=== PATIENT | female | born 1975 | race Hispanic/Latino ===

== ENCOUNTER 2018-12-02 05:38 | Emergency (ER) | payer MEDICAID, SELFPAY ==
--- NOTE | 2018-12-02 05:40 | ED.BACK ---
HPI - Back Pain/Injury <Abilio Jorge, - Last Filed: 12/03/18 02:55> General Chief Complaint: Extremity Problem,Nontraumatic Stated Complaint: states pain from sciatica in left leg hard to walk Time Seen by Provider: 12/02/18 05:40 Source: patient Mode of arrival: ambulatory Limitations: no limitations History of Present Illness HPI Narrative: 42-year-old female nonsmoker with no significant known medical history presents with severe left leg pain and swelling in the absence of injury. She states her pain started a few days ago and now is rapidly worsening. She admits to significant swelling from the groin to her foot and color change. She states she was seen by her primary care provider very recently due to heavy vaginal bleeding and she was scheduled for an ultrasound and there is some concern that she may have uterine cancer. She denies any history of clots, recent travel surgeries or other risk factors for clot. She denies any chest pain or shortness of breath. She takes no blood thinners. She denies dysuria, frequency or urgency MD Complaint: other Onset (ago): day(s) Duration: progressively worsening Similar Symptoms Previously: No Location: left lower back Severity: severe Quality: burning and aching Radiation: left leg Severity scale (1-10): 10 Relieving factors: none Related Data Home Medications Medication Instructions Recorded Confirmed acetaminophen PRN #0 10/02/09 Allergies Allergy/AdvReac Type Severity Reaction Status Date / Time No Known Drug Allergies Allergy Verified 12/02/18 07:08 <Cathleen Samuel DO - Last Filed: 12/02/18 08:53> General Source: patient History of Present Illness HPI Narrative: This is a 42-year-old female comes emergency department with complaint of left lower extremity pain and swelling and inability to walk. Patient was signed out to myself by Dr. Jorge the physician on overnight. Patient was re-evaluated, states that she started having symptoms on Friday which have been slowly progressing. She saw primary care who told her she had sciatica and give her Motrin. Patient states that the swelling has continued to increase. And pain started in her lateral and moved up towards the buttock. Patient was quite uncomfortable per report when she arrived was not able to walk. She has been taking Motrin for pain without any improvement. She denies any fevers or chills. She denies any current chest pain or shortness of breath. She states she felt a little short of breath earlier in the week. She denies any nausea or vomiting. Denies any constipation or diarrhea. Denies any urinary issues. States that she was seen at the [facility] for concern for uterine cancer and had a biopsy but she has not received the report. She was supposed to follow up in the next week to get the results. Patient states that she has had some vaginal bleeding that she has regular periods but has had having bleeding with those at times and occasional spotting. She denies any current vaginal bleeding at this time. She has on metformin for diabetes. States that she does not take any additional medications regularly. <Cathleen Samuel DO - Last Filed: 12/02/18 08:53> Review of Systems ROS Unobtainable: All systems reviewed & are unremarkable except as noted in HPI and below Constitutional Denies chills and Denies fever(s) Cardiovascular Denies chest pain, Denies syncope, Reports edema (left leg), Denies dyspnea and Denies dyspnea on exertion Respiratory Denies chest congestion, Denies cough, Denies hemoptysis, Denies dyspnea and Denies dyspnea on exertion Gastrointestinal Gastrointestinal: Denies abdominal pain, Denies change in bowel habits, Denies diarrhea, Denies nausea and Denies vomiting Genitourinary Reports abnormal vaginal bleeding (per patient regular periods with spotting at times.), Denies hematuria, Denies flank pain, Denies urinary incontinence and Denies urinary urgency Musculoskeletal Reports as per HPI, Reports abnormal gait (unable to walk), Reports limited range of motion, Denies muscle weakness and Denies numbness Integumentary/Breasts Denies unusual bruising and Denies wounds Neurologic Reports abnormal gait (unable to walk), Denies syncope and Denies numbness PFS <Abilio Jorge DO - Last Filed: 12/03/18 02:55> Medical History (Updated 12/02/18 @ 08:26 by Cathleen Samuel DO) Diabetes (Chronic) Social History Smoking Status: Never smoker Social History Smoking Status: Never smoker Exam <Abilio Jorge DO - Last Filed: 12/03/18 02:55> Initial Vital Signs Initial Vital Signs: Vital Signs Temperature 98 F 12/02/18 05:51 Pulse Rate 88 12/02/18 05:51 Respiratory Rate 18 12/02/18 05:51 Blood Pressure 122/74 12/02/18 05:51 Pulse Oximetry 100 12/02/18 05:51 <Cathleen Samuel DO - Last Filed: 12/02/18 08:53> Narrative Exam Narrative: GENERAL: Alert and oriented x three, well-nourished female in mild distress HEENT: Head normocephalic, atraumatic, EOMI, pupils reactive, face symmetric, moist mucous membranes NECK: Supple, full range of motion CARDIOVASCULAR: Regular rate and rhythm without murmurs, rubs or gallops. RESPIRATORY: Breath sounds equal bilaterally, no wheezes rales or rhonchi. ABDOMEN: Soft, nontender. Normoactive bowel sounds all 4 quadrants. No guarding or rebound, rigidity, no mass EXTREMITIES: Patient has swelling greater on the left in comparison to the right. Skin coloration is slightly darker compared to the right. Patient has palpable pulse but difficult to palpate on the left in comparison to the right. Patient has sensation to light touch. Patient does not wish to move her lower extremity secondary to pain. NEUROLOGICAL: Cranial nerves II through XII grossly intact. Moving all extremities SKIN: Warm, dry, no petechiae. Initial Vital Signs Initial Vital Signs: Vital Signs Temperature 98 F 12/02/18 05:51 Pulse Rate 88 12/02/18 05:51 Respiratory Rate 18 12/02/18 05:51 Blood Pressure 122/74 12/02/18 05:51 Pulse Oximetry 100 12/02/18 05:51 Course <Abilio Jorge DO - Last Filed: 12/03/18 02:55> Orders Ordered: Discontinued Medications Heparin Sodium (Porcine) (Heparin) 5,000 unit IV NOW ONE Stop: 12/02/18 05:50 Last Admin: 12/02/18 06:07 Dose: 5,000 unit Hydromorphone HCl (Dilaudid) 0.5 mg IV NOW ONE Stop: 12/02/18 05:50 Last Admin: 12/02/18 06:06 Dose: 0.5 mg Heparin Sodium/Dextrose (Heparin Drip) 25,000 unit in 500 mls @ 27.433 mls/hr IV CONT AUNDREA; Protocol Last Titration: 12/02/18 09:10 Dose: 0 units/kg/hr, 0 mls/hr Admin: 12/02/18 07:11 Dose: 18 units/kg/hr, 27.433 mls/hr Ondansetron HCl (Zofran) 4 mg IV NOW ONE Stop: 12/02/18 06:05 Last Admin: 12/02/18 06:06 Dose: 4 mg Vital Signs - 8 hr 12/02/18 05:51 12/02/18 06:00 12/02/18 07:00 Temperature 98 F Pulse Rate 88 87 85 Respiratory Rate 18 18 16 Blood Pressure 122/74 Blood Pressure [Left Arm] 107/64 106/60 Pulse Oximetry 100 99 99 12/02/18 08:08 12/02/18 08:30 Temperature Pulse Rate 83 88 Respiratory Rate 18 16 Blood Pressure Blood Pressure [Left Arm] 103/76 99/63 Pulse Oximetry 100 <Cathleen Samuel, - Last Filed: 12/02/18 08:53> Orders Ordered: Discontinued Medications Heparin Sodium (Porcine) (Heparin) 5,000 unit IV NOW ONE Stop: 12/02/18 05:50 Last Admin: 12/02/18 06:07 Dose: 5,000 unit Hydromorphone HCl (Dilaudid) 0.5 mg IV NOW ONE Stop: 12/02/18 05:50 Last Admin: 12/02/18 06:06 Dose: 0.5 mg Heparin Sodium/Dextrose (Heparin Drip) 25,000 unit in 500 mls @ 27.433 mls/hr IV CONT AUNDREA; Protocol Last Titration: 12/02/18 09:10 Dose: 0 units/kg/hr, 0 mls/hr Admin: 12/02/18 07:11 Dose: 18 units/kg/hr, 27.433 mls/hr Ondansetron HCl (Zofran) 4 mg IV NOW ONE Stop: 12/02/18 06:05 Last Admin: 12/02/18 06:06 Dose: 4 mg Vital Signs - 8 hr 12/02/18 05:51 12/02/18 06:00 12/02/18 07:00 Temperature 98 F Pulse Rate 88 87 85 Respiratory Rate 18 18 16 Blood Pressure 122/74 Blood Pressure [Left Arm] 107/64 106/60 Pulse Oximetry 100 99 99 12/02/18 08:08 12/02/18 08:30 Temperature Pulse Rate 83 88 Respiratory Rate 18 16 Blood Pressure Blood Pressure [Left Arm] 103/76 99/63 Pulse Oximetry 100 MDM - Back Pain/Injury <Abilio JorgeDO - Last Filed: 12/03/18 02:55> Lab Data Result diagrams: 12/02/18 06:00 12/02/18 06:00 Lab Results 12/02/18 12/02/18 12/02/18 Range/Units 06:00 06:00 06:00 WBC 10.7 (4.5-11.0) X10^3/uL RBC 4.15 (4.0-5.2) X10^6/uL Hgb 8.4 L (12.0-16.0) g/dL Hct 27.2 L (36-46) % MCV 65.6 L (80-100) fL MCH 20.2 L (26-34) PG MCHC 30.8 (30-36) % RDW 18.3 H (11.6-14.8) % Plt Count 373 (150-400) X10^3/uL Neut % (Auto) 62.0 (50-75) % Lymph % (Auto) 22.9 L (25-40) % [place] % (Auto) 11.7 (3-14) % Eos % (Auto) 2.5 (2-4) % Baso % (Auto) 0.9 (0-2) % Neut # (Auto) 6700 (8349-7455) /uL Lymph # (Auto) 2500 (7225-0613) /uL [place] # (Auto) 1200 H (0-900) /uL Eos # (Auto) 300 (0-450) /uL Baso # (Auto) 100 (0-100) /uL RBC Morphology See below Polychromasia 1+ H Hypochromasia 1+ H Anisocytosis 1+ H Microcytosis 1+ H Ovalocytes 1+ H PT 10.9 (10.1-12.7) SECONDS INR 1.0 (0.9-1.3) APTT (26.4-36.2) SECONDS Sodium 136 L (137-145) mmol/L Potassium 4.7 (3.4-5.1) mmol/L Chloride 104 (98-107) mmol/L Carbon Dioxide 25 (22-32) mmol/L BUN 15 (7-17) mg/dL Creatinine 0.60 (0.52-1.04) mg/dL Estimated GFR > 60.0 (>60) mL/min BUN/Creatinine Ratio 25.0 H (6-22) Glucose 185 H (70-100) mg/dL Lactate (0.7-2.1) mmol/L Calcium 8.7 (8.4-10.2) mg/dL 12/02/18 12/02/18 12/02/18 Range/Units 06:00 06:00 08:24 WBC (4.5-11.0) X10^3/uL RBC (4.0-5.2) X10^6/uL Hgb (12.0-16.0) g/dL Hct (36-46) % MCV (80-100) fL MCH (26-34) PG MCHC (30-36) % RDW (11.6-14.8) % Plt Count (150-400) X10^3/uL Neut % (Auto) (50-75) % Lymph % (Auto) (25-40) % [place] % (Auto) (3-14) % Eos % (Auto) (2-4) % Baso % (Auto) (0-2) % Neut # (Auto) (1261-5353) /uL Lymph # (Auto) (5427-3470) /uL [place] # (Auto) (0-900) /uL Eos # (Auto) (0-450) /uL Baso # (Auto) (0-100) /uL RBC Morphology Polychromasia Hypochromasia Anisocytosis Microcytosis Ovalocytes PT (10.1-12.7) SECONDS INR (0.9-1.3) APTT 26 L 86 H* D (26.4-36.2) SECONDS Sodium (137-145) mmol/L Potassium (3.4-5.1) mmol/L Chloride (98-107) mmol/L Carbon Dioxide (22-32) mmol/L BUN (7-17) mg/dL Creatinine (0.52-1.04) mg/dL Estimated GFR (>60) mL/min BUN/Creatinine Ratio (6-22) Glucose (70-100) mg/dL Lactate 1.4 (0.7-2.1) mmol/L Calcium (8.4-10.2) mg/dL <Cathleen Samuel, DO - Last Filed: 12/02/18 08:53> Lab Data Attestation: I reviewed the patient's lab results. Lab Results 12/02/18 12/02/18 12/02/18 Range/Units 06:00 06:00 06:00 WBC 10.7 (4.5-11.0) X10^3/uL RBC 4.15 (4.0-5.2) X10^6/uL Hgb 8.4 L (12.0-16.0) g/dL Hct 27.2 L (36-46) % MCV 65.6 L (80-100) fL MCH 20.2 L (26-34) PG MCHC 30.8 (30-36) % RDW 18.3 H (11.6-14.8) % Plt Count 373 (150-400) X10^3/uL Neut % (Auto) 62.0 (50-75) % Lymph % (Auto) 22.9 L (25-40) % [place] % (Auto) 11.7 (3-14) % Eos % (Auto) 2.5 (2-4) % Baso % (Auto) 0.9 (0-2) % Neut # (Auto) 6700 (7065-9817) /uL Lymph # (Auto) 2500 (9700-6881) /uL [place] # (Auto) 1200 H (0-900) /uL Eos # (Auto) 300 (0-450) /uL Baso # (Auto) 100 (0-100) /uL RBC Morphology See below Polychromasia 1+ H Hypochromasia 1+ H Anisocytosis 1+ H Microcytosis 1+ H Ovalocytes 1+ H PT 10.9 (10.1-12.7) SECONDS INR 1.0 (0.9-1.3) APTT (26.4-36.2) SECONDS Sodium 136 L (137-145) mmol/L Potassium 4.7 (3.4-5.1) mmol/L Chloride 104 (98-107) mmol/L Carbon Dioxide 25 (22-32) mmol/L BUN 15 (7-17) mg/dL Creatinine 0.60 (0.52-1.04) mg/dL Estimated GFR > 60.0 (>60) mL/min BUN/Creatinine Ratio 25.0 H (6-22) Glucose 185 H (70-100) mg/dL Lactate (0.7-2.1) mmol/L Calcium 8.7 (8.4-10.2) mg/dL 12/02/18 12/02/18 12/02/18 Range/Units 06:00 06:00 08:24 WBC (4.5-11.0) X10^3/uL RBC (4.0-5.2) X10^6/uL Hgb (12.0-16.0) g/dL Hct (36-46) % MCV (80-100) fL MCH (26-34) PG MCHC (30-36) % RDW (11.6-14.8) % Plt Count (150-400) X10^3/uL Neut % (Auto) (50-75) % Lymph % (Auto) (25-40) % [place] % (Auto) (3-14) % Eos % (Auto) (2-4) % Baso % (Auto) (0-2) % Neut # (Auto) (0292-1946) /uL Lymph # (Auto) (7563-6255) /uL [place] # (Auto) (0-900) /uL Eos # (Auto) (0-450) /uL Baso # (Auto) (0-100) /uL RBC Morphology Polychromasia Hypochromasia Anisocytosis Microcytosis Ovalocytes PT (10.1-12.7) SECONDS INR (0.9-1.3) APTT 26 L 86 H* D (26.4-36.2) SECONDS Sodium (137-145) mmol/L Potassium (3.4-5.1) mmol/L Chloride (98-107) mmol/L Carbon Dioxide (22-32) mmol/L BUN (7-17) mg/dL Creatinine (0.52-1.04) mg/dL Estimated GFR (>60) mL/min BUN/Creatinine Ratio (6-22) Glucose (70-100) mg/dL Lactate 1.4 (0.7-2.1) mmol/L Calcium (8.4-10.2) mg/dL Imaging Data vascular US: Radiologist's impression: Prelim report. Noncompressible occlusive thrombus within the greater saphenous vein. The common femoral, superficial femoral and popliteal veins are noncompressible however demonstrate flow. Review of the CT demonstrates inflammation surrounding the vessel and there is likely a component of thrombophlebitis. Aorta w/ runoff CTA: Radiologist's impression: prelim report. Arteries are symmetric and well perfused, no aneurysm dissection or thrombosis. Symmetric normal perfusion to both feet. Subcutaneous edema of the left leg from mid femur to lower leg. No abscess, small knee effusion. Thrombus within the left popliteal vein extending superiorly to the left common iliac vein. IVC is patent. Patient has a 1.7 x 2.6 cm hypodense left adrenal lesion is indeterminate. Hypodense uterine fibroids. Otherwise no abnormalities to the abdominal organs no free air or fluid, bones are intact with out acute or suspicious pathology. MDM Narrative Medical decision making narrative: Patient was signed out to myself by Dr. Jorge. Patient is a 42-year-old who came in with complaint of left lower extremity pain that is been worsening and started on Friday. Patient has swelling of her lower extremity significantly compared to the right. The coloration is slightly different than the right and although she has a palpable pulse on the left is a little bit harder to palpate than the right. Patient was not able to ambulate into the department secondary to pain. Patient has no diabetes, she states she has been following with primary care at the [facility] in [place]. She states that they did a biopsy recently because they were concerned for cancer in her uterus although she has not received the results. She speaks slovenian but her first language is polish, I did offer networking administrator or to contact family/friends to come sit with her and she defers both of these. Today she has a large DVT running from the greater saphenous up into the common iliac. There is indeterminate hypodense left adrenal lesion and fibroid uterus. Discussed with patient no obvious exacerbating factors such as recent travel, estrogen, no hx of dvt. Attempted to speak with vascular surgery but they asked that we consult to Medicine. I do think patient is potentially a candidate for intervention with a history complicated by vaginal bleeding, I spoke with Dr. Ng the hospitalist who accepts for transfer. We discussed patient is currently on heparin, will repeat a PTT within an hour prior to transfer. If transfer is going to take more than 4 hours discussed putting patient on low molecular weight heparin instead. Patient is aware of the plan for evaluation and then decision about how to proceed with treatment, she is comfortable with the plan. PTT is still pending at time of transfer. Discharge Plan Departure Patient Disposition: [facility] Clinical Impression: DVT of leg (deep venous thrombosis) Discharge Date/Time: 12/02/18 08:55 Interventions: ED Discharge Assessment Last Done: 12/02/18 08:52 Prescriptions: No Action acetaminophen 325 MG tablet PRN Qty: 0 RF: 0
--- NOTE | 2018-12-02 05:49 | DI.CT.S_ITS ---
PROCEDURE: 1. CT ANGIO ABD AORTA RUNOFF 2. CT venography of the abdomen, pelvis, and bilateral lower extremities. INDICATIONS: severe left leg pain, swelling, groin to foot TECHNIQUE: After the administration of intravenous contrast, 2.5 mm sections acquired from T12 to the feet, with optional delayed image acquisition from the knees to the feet. 3-dimensional maximum intensity projection (MIP) coronal and sagittal reformats, and/or 3-dimensional volume rendering reformatting was then performed. For radiation dose reduction, the following was used: automated exposure control. COMPARISON: [facility], , [facility] VENOUS LOW EXTREM LT, 12/02/2018, 6:36. FINDINGS: Image quality: Partially degraded by motion artifact. Extravascular tissues: Lung bases are clear. Heart size is normal. Liver is normal in size and enhancement. Gallbladder is within normal limits. Biliary system is non dilated. Pancreas enhances normally. Spleen is normal in size and enhancement. No right adrenal nodules. 26 mm diameter left adrenal nodule is present with post contrast Hounsfield units of 66. Kidneys are normal in size and enhancement, without hydronephrosis. Non opacified bowel loops demonstrate normal wall thickness and enhancement. Normal appendix. No free fluid or air. No retroperitoneal or mesenteric adenopathy. No ventral hernias. Bladder wall thickness is normal. Multiple uterine fibroids are present the, largest of which measure 16 mm posteriorly, and 55 mm anteriorly. No inguinal hernias or adenopathy. No suspicious bony lesions. No vertebral body compression fractures. Abdominal aorta: Widely patent. No aneurysm, dissection, nor stenosis. Right lower extremity: Common, internal, and external iliac arteries are patent. Common, profunda, and superficial femoral arteries are patent. Above and below-knee popliteal artery patent. Anterior tibial artery, tibioperoneal trunk, peroneal and posterior tibial arteries patent. Left lower extremity: Common, internal, and external iliac arteries are patent. Common, profunda, and superficial femoral arteries are patent. Above and below-knee popliteal artery patent. Anterior tibial artery, tibioperoneal trunk, peroneal and posterior tibial arteries patent. CT venography of the abdomen, pelvis, and bilateral lower extremities: The inferior vena cava is patent. Renal veins are patent. The right common, internal, and external iliac veins are patent. The right superficial femoral, and popliteal veins are patent. The left common, internal, and external iliac veins demonstrate occlusive thrombus. The left superficial femoral and greater saphenous veins demonstrate occlusive thrombus. The above and below-knee popliteal vein demonstrates occlusive thrombus. There is probable occlusive thrombus extending into the tibial veins. IMPRESSION: 1. Negative examination of the arterial structures of the abdomen, pelvis, and lower extremities. 2. Left lower extremity DVT. 3. Indeterminate left adrenal lesion. This could be further assessed with adrenal protocol MRI, if clinically indicated. 4. Multiple uterine fibroids. If the patient demonstrates symptoms referable to uterine fibroids, she may be a candidate for uterine fibroid embolization. Interventional radiology consultation at [facility] could be obtained with Dr. Pryor. 5. Concordant with preliminary interpretation. Dictated by: Benjie Pryor M.D. on 12/02/2018 at 8:34 Approved by: Benjie Pryor M.D. on 12/02/2018 at 9:19
[2018-12-02 05:51] VITALS: BP 122/74; PULSE 88; RESP 18; TEMP 36.6; O2SAT 100; BMI 29.7
[2018-12-02 06:00] VITALS: BP 107/64; PULSE 87; RESP 18; O2SAT 99
[2018-12-02] MEDS: ONDANSETRON 4 MG/2 ML INJ IV (06:06)
[2018-12-02] MEDS: HYDROMORPHONE 0.5 MG INJ IV (06:06)
[2018-12-02] MEDS: HEPARIN 5,000 UNIT/ML VIAL 5000 UNIT IV (06:07)
[2018-12-02 06:09] LABS: Basophils Absolute Auto 100 /uL (0-100); Basophils Percent Auto 0.9 % (0-2); Eosinophils Absolute Auto 300 /uL (0-450); Eosinophils Percent Auto 2.5 % (2-4); Hematocrit 27.2 % (36-46); Hemoglobin 8.4 g/dL (12.0-16.0); Lymphocytes Absolute Auto 2500 /uL (1100-4500); Lymphocytes Percent Auto 22.9 % (25-40); Mean Corpuscular HGB Conc 30.8 % (30-36); Mean Corpuscular Hemoglobin 20.2 PG (26-34); Mean Corpuscular Volume 65.6 fL (80-100); Monocytes Absolute Auto 1200 /uL (0-900); Monocytes Percent Auto 11.7 % (3-14); Neutrophils Absolute Auto 6700 /uL (1500-7000); Platelet Count 373 X10^3/uL (150-400); Red Blood Cell Count 4.15 X10^6/uL (4.0-5.2); Red Cell Distribution Width 18.3 % (11.6-14.8); White Blood Cell Count 10.7 X10^3/uL (4.5-11.0)
--- NOTE | 2018-12-02 06:09 | ED_ITS ---
HPI - Back Pain/Injury <Abilio Jorge, - Last Filed: 12/03/18 02:55> General Chief Complaint: Extremity Problem,Nontraumatic Stated Complaint: states pain from sciatica in left leg hard to walk Time Seen by Provider: 12/02/18 05:40 Source: patient Mode of arrival: ambulatory Limitations: no limitations History of Present Illness HPI Narrative: 42-year-old female nonsmoker with no significant known medical history presents with severe left leg pain and swelling in the absence of injury . She states her pain started a few days ago and now is rapidly worsening. She admits to significant swelling from the groin to her foot and color change. She states she was seen by her primary care provider very recently due to heavy vaginal bleeding and she was scheduled for an ultrasound and there is some concern that she may have uterine cancer. She denies any history of clots, recent travel surgeries or other risk factors for clot. She denies any chest pain or shortness of breath. She takes no blood thinners. She denies dysuria, frequency or urgency MD Complaint: other Onset (ago): day(s) Duration: progressively worsening Similar Symptoms Previously: No Location: left lower back Severity: severe Quality: burning and aching Radiation: left leg Severity scale (1-10): 10 Relieving factors: none Related Data Home Medications Medication Instructions Recorded Confirmed acetaminophen PRN #0 10/02/09 Allergies Allergy/AdvReac Type Severity Reaction Status Date / Time No Known Drug Allergies Allergy Verified 12/02/18 07:08 <Cathleen Samuel DO - Last Filed: 12/02/18 08:53> General Source: patient History of Present Illness HPI Narrative: This is a 42-year-old female comes emergency department with complaint of left lower extremity pain and swelling and inability to walk. Patient was signed out to myself by Dr. Jorge the physician on overnight. Patient was re-evaluated, states that she started having symptoms on Friday which have been slowly progressing. She saw primary care who told her she had sciatica and give her Motrin. Patient states that the swelling has continued to increase. And pain started in her lateral and moved up towards the buttock. Patient was quite uncomfortable per report when she arrived was not able to walk. She has been taking Motrin for pain without any improvement. She denies any fevers or chills. She denies any current chest pain or shortness of breath. She states she felt a little short of breath earlier in the week. She denies any nausea or vomiting. Denies any constipation or diarrhea. Denies any urinary issues. States that she was seen at the [facility] for concern for uterine cancer and had a biopsy but she has not received the report. She was supposed to follow up in the next week to get the results. Patient states that she has had some vaginal bleeding that she has regular periods but has had having bleeding with those at times and occasional spotting. She denies any current vaginal bleeding at this time. She has on metformin for diabetes. States that she does not take any additional medications regularly. <Cathleen Samuel DO - Last Filed: 12/02/18 08:53> Review of Systems ROS Unobtainable: All systems reviewed & are unremarkable except as noted in HPI and below Constitutional Denies chills and Denies fever(s) Cardiovascular Denies chest pain, Denies syncope, Reports edema (left leg), Denies dyspnea and Denies dyspnea on exertion Respiratory Denies chest congestion, Denies cough, Denies hemoptysis, Denies dyspnea and Denies dyspnea on exertion Gastrointestinal Gastrointestinal: Denies abdominal pain, Denies change in bowel habits, Denies diarrhea, Denies nausea and Denies vomiting Genitourinary Reports abnormal vaginal bleeding (per patient regular periods with spotting at times.), Denies hematuria, Denies flank pain, Denies urinary incontinence and Denies urinary urgency Musculoskeletal Reports as per HPI, Reports abnormal gait (unable to walk), Reports limited range of motion, Denies muscle weakness and Denies numbness Integumentary/Breasts Denies unusual bruising and Denies wounds Neurologic Reports abnormal gait (unable to walk), Denies syncope and Denies numbness PFS <Abilio Jorge DO - Last Filed: 12/03/18 02:55> Medical History (Updated 12/02/18 @ 08:26 by Cathleen Samuel DO) Diabetes (Chronic) Social History Smoking Status: Never smoker Social History Smoking Status: Never smoker Exam <Abilio Jorge DO - Last Filed: 12/03/18 02:55> Initial Vital Signs Initial Vital Signs: Vital Signs Temperature 98 F 12/02/18 05:51 Pulse Rate 88 12/02/18 05:51 Respiratory Rate 18 12/02/18 05:51 Blood Pressure 122/74 12/02/18 05:51 Pulse Oximetry 100 12/02/18 05:51 <Cathleen Samuel DO - Last Filed: 12/02/18 08:53> Narrative Exam Narrative: GENERAL: Alert and oriented x three, well-nourished female in mild distress HEENT: Head normocephalic, atraumatic, EOMI, pupils reactive, face symmetric, moist mucous membranes NECK: Supple, full range of motion CARDIOVASCULAR: Regular rate and rhythm without murmurs, rubs or gallops. RESPIRATORY: Breath sounds equal bilaterally, no wheezes rales or rhonchi. ABDOMEN: Soft, nontender. Normoactive bowel sounds all 4 quadrants. No guarding or rebound, rigidity, no mass EXTREMITIES: Patient has swelling greater on the left in comparison to the right. Skin coloration is slightly darker compared to the right. Patient has palpable pulse but difficult to palpate on the left in comparison to the right. Patient has sensation to light touch. Patient does not wish to move her lower extremity secondary to pain. NEUROLOGICAL: Cranial nerves II through XII grossly intact. Moving all extremities SKIN: Warm, dry, no petechiae. Initial Vital Signs Initial Vital Signs: Vital Signs Temperature 98 F 12/02/18 05:51 Pulse Rate 88 12/02/18 05:51 Respiratory Rate 18 12/02/18 05:51 Blood Pressure 122/74 12/02/18 05:51 Pulse Oximetry 100 12/02/18 05:51 Course <Abilio Jorge DO - Last Filed: 12/03/18 02:55> Orders Ordered: Discontinued Medications Heparin Sodium (Porcine) (Heparin) 5,000 unit IV NOW ONE Stop: 12/02/18 05:50 Last Admin: 12/02/18 06:07 Dose: 5,000 unit Hydromorphone HCl (Dilaudid) 0.5 mg IV NOW ONE Stop: 12/02/18 05:50 Last Admin: 12/02/18 06:06 Dose: 0.5 mg Heparin Sodium/Dextrose (Heparin Drip) 25,000 unit in 500 mls @ 27.433 mls/hr IV CONT AUNDREA; Protocol Last Titration: 12/02/18 09:10 Dose: 0 units/kg/hr, 0 mls/hr Admin: 12/02/18 07:11 Dose: 18 units/kg/hr, 27.433 mls/hr Ondansetron HCl (Zofran) 4 mg IV NOW ONE Stop: 12/02/18 06:05 Last Admin: 12/02/18 06:06 Dose: 4 mg Vital Signs - 8 hr 12/02/18 05:51 12/02/18 06:00 12/02/18 07:00 Temperature 98 F Pulse Rate 88 87 85 Respiratory Rate 18 18 16 Blood Pressure 122/74 Blood Pressure [Left Arm] 107/64 106/60 Pulse Oximetry 100 99 99 12/02/18 08:08 12/02/18 08:30 Temperature Pulse Rate 83 88 Respiratory Rate 18 16 Blood Pressure Blood Pressure [Left Arm] 103/76 99/63 Pulse Oximetry 100 <Cathleen Samuel, - Last Filed: 12/02/18 08:53> Orders Ordered: Discontinued Medications Heparin Sodium (Porcine) (Heparin) 5,000 unit IV NOW ONE Stop: 12/02/18 05:50 Last Admin: 12/02/18 06:07 Dose: 5,000 unit Hydromorphone HCl (Dilaudid) 0.5 mg IV NOW ONE Stop: 12/02/18 05:50 Last Admin: 12/02/18 06:06 Dose: 0.5 mg Heparin Sodium/Dextrose (Heparin Drip) 25,000 unit in 500 mls @ 27.433 mls/hr IV CONT AUNDREA; Protocol Last Titration: 12/02/18 09:10 Dose: 0 units/kg/hr, 0 mls/hr Admin: 12/02/18 07:11 Dose: 18 units/kg/hr, 27.433 mls/hr Ondansetron HCl (Zofran) 4 mg IV NOW ONE Stop: 12/02/18 06:05 Last Admin: 12/02/18 06:06 Dose: 4 mg Vital Signs - 8 hr 12/02/18 05:51 12/02/18 06:00 12/02/18 07:00 Temperature 98 F Pulse Rate 88 87 85 Respiratory Rate 18 18 16 Blood Pressure 122/74 Blood Pressure [Left Arm] 107/64 106/60 Pulse Oximetry 100 99 99 12/02/18 08:08 12/02/18 08:30 Temperature Pulse Rate 83 88 Respiratory Rate 18 16 Blood Pressure Blood Pressure [Left Arm] 103/76 99/63 Pulse Oximetry 100 MDM - Back Pain/Injury <Abilio JorgeDO - Last Filed: 12/03/18 02:55> Lab Data Result diagrams: 12/02/18 06:00 12/02/18 06:00 Lab Results 12/02/18 12/02/18 12/02/18 Range/Units 06:00 06:00 06:00 WBC 10.7 (4.5-11.0) X10^3/uL RBC 4.15 (4.0-5.2) X10^6/uL Hgb 8.4 L (12.0-16.0) g/dL Hct 27.2 L (36-46) % MCV 65.6 L (80-100) fL MCH 20.2 L (26-34) PG MCHC 30.8 (30-36) % RDW 18.3 H (11.6-14.8) % Plt Count 373 (150-400) X10^3/uL Neut % (Auto) 62.0 (50-75) % Lymph % (Auto) 22.9 L (25-40) % [place] % (Auto) 11.7 (3-14) % Eos % (Auto) 2.5 (2-4) % Baso % (Auto) 0.9 (0-2) % Neut # (Auto) 6700 (4985-1454) /uL Lymph # (Auto) 2500 (0803-0509) /uL [place] # (Auto) 1200 H (0-900) /uL Eos # (Auto) 300 (0-450) /uL Baso # (Auto) 100 (0-100) /uL RBC Morphology See below Polychromasia 1+ H Hypochromasia 1+ H Anisocytosis 1+ H Microcytosis 1+ H Ovalocytes 1+ H PT 10.9 (10.1-12.7) SECONDS INR 1.0 (0.9-1.3) APTT (26.4-36.2) SECONDS Sodium 136 L (137-145) mmol/L Potassium 4.7 (3.4-5.1) mmol/L Chloride 104 (98-107) mmol/L Carbon Dioxide 25 (22-32) mmol/L BUN 15 (7-17) mg/dL Creatinine 0.60 (0.52-1.04) mg/dL Estimated GFR > 60.0 (>60) mL/min BUN/Creatinine Ratio 25.0 H (6-22) Glucose 185 H (70-100) mg/dL Lactate (0.7-2.1) mmol/L Calcium 8.7 (8.4-10.2) mg/dL 12/02/18 12/02/18 12/02/18 Range/Units 06:00 06:00 08:24 WBC (4.5-11.0) X10^3/uL RBC (4.0-5.2) X10^6/uL Hgb (12.0-16.0) g/dL Hct (36-46) % MCV (80-100) fL MCH (26-34) PG MCHC (30-36) % RDW (11.6-14.8) % Plt Count (150-400) X10^3/uL Neut % (Auto) (50-75) % Lymph % (Auto) (25-40) % [place] % (Auto) (3-14) % Eos % (Auto) (2-4) % Baso % (Auto) (0-2) % Neut # (Auto) (1141-2573) /uL Lymph # (Auto) (7716-7350) /uL [place] # (Auto) (0-900) /uL Eos # (Auto) (0-450) /uL Baso # (Auto) (0-100) /uL RBC Morphology Polychromasia Hypochromasia Anisocytosis Microcytosis Ovalocytes PT (10.1-12.7) SECONDS INR (0.9-1.3) APTT 26 L 86 H* D (26.4-36.2) SECONDS Sodium (137-145) mmol/L Potassium (3.4-5.1) mmol/L Chloride (98-107) mmol/L Carbon Dioxide (22-32) mmol/L BUN (7-17) mg/dL Creatinine (0.52-1.04) mg/dL Estimated GFR (>60) mL/min BUN/Creatinine Ratio (6-22) Glucose (70-100) mg/dL Lactate 1.4 (0.7-2.1) mmol/L Calcium (8.4-10.2) mg/dL <Cathleen Samuel, DO - Last Filed: 12/02/18 08:53> Lab Data Attestation: I reviewed the patient's lab results. Lab Results 12/02/18 12/02/18 12/02/18 Range/Units 06:00 06:00 06:00 WBC 10.7 (4.5-11.0) X10^3/uL RBC 4.15 (4.0-5.2) X10^6/uL Hgb 8.4 L (12.0-16.0) g/dL Hct 27.2 L (36-46) % MCV 65.6 L (80-100) fL MCH 20.2 L (26-34) PG MCHC 30.8 (30-36) % RDW 18.3 H (11.6-14.8) % Plt Count 373 (150-400) X10^3/uL Neut % (Auto) 62.0 (50-75) % Lymph % (Auto) 22.9 L (25-40) % [place] % (Auto) 11.7 (3-14) % Eos % (Auto) 2.5 (2-4) % Baso % (Auto) 0.9 (0-2) % Neut # (Auto) 6700 (2680-9193) /uL Lymph # (Auto) 2500 (5505-5170) /uL [place] # (Auto) 1200 H (0-900) /uL Eos # (Auto) 300 (0-450) /uL Baso # (Auto) 100 (0-100) /uL RBC Morphology See below Polychromasia 1+ H Hypochromasia 1+ H Anisocytosis 1+ H Microcytosis 1+ H Ovalocytes 1+ H PT 10.9 (10.1-12.7) SECONDS INR 1.0 (0.9-1.3) APTT (26.4-36.2) SECONDS Sodium 136 L (137-145) mmol/L Potassium 4.7 (3.4-5.1) mmol/L Chloride 104 (98-107) mmol/L Carbon Dioxide 25 (22-32) mmol/L BUN 15 (7-17) mg/dL Creatinine 0.60 (0.52-1.04) mg/dL Estimated GFR > 60.0 (>60) mL/min BUN/Creatinine Ratio 25.0 H (6-22) Glucose 185 H (70-100) mg/dL Lactate (0.7-2.1) mmol/L Calcium 8.7 (8.4-10.2) mg/dL 12/02/18 12/02/18 12/02/18 Range/Units 06:00 06:00 08:24 WBC (4.5-11.0) X10^3/uL RBC (4.0-5.2) X10^6/uL Hgb (12.0-16.0) g/dL Hct (36-46) % MCV (80-100) fL MCH (26-34) PG MCHC (30-36) % RDW (11.6-14.8) % Plt Count (150-400) X10^3/uL Neut % (Auto) (50-75) % Lymph % (Auto) (25-40) % [place] % (Auto) (3-14) % Eos % (Auto) (2-4) % Baso % (Auto) (0-2) % Neut # (Auto) (6995-0164) /uL Lymph # (Auto) (0081-1814) /uL [place] # (Auto) (0-900) /uL Eos # (Auto) (0-450) /uL Baso # (Auto) (0-100) /uL RBC Morphology Polychromasia Hypochromasia Anisocytosis Microcytosis Ovalocytes PT (10.1-12.7) SECONDS INR (0.9-1.3) APTT 26 L 86 H* D (26.4-36.2) SECONDS Sodium (137-145) mmol/L Potassium (3.4-5.1) mmol/L Chloride (98-107) mmol/L Carbon Dioxide (22-32) mmol/L BUN (7-17) mg/dL Creatinine (0.52-1.04) mg/dL Estimated GFR (>60) mL/min BUN/Creatinine Ratio (6-22) Glucose (70-100) mg/dL Lactate 1.4 (0.7-2.1) mmol/L Calcium (8.4-10.2) mg/dL Imaging Data vascular US: Radiologist's impression: Prelim report. Noncompressible occlusive thrombus within the greater saphenous vein. The common femoral, superficial femoral and popliteal veins are noncompressible however demonstrate flow. Review of the CT demonstrates inflammation surrounding the vessel and there is likely a component of thrombophlebitis. Aorta w/ runoff CTA: Radiologist's impression: prelim report. Arteries are symmetric and well perfused, no aneurysm dissection or thrombosis. Symmetric normal perfusion to both feet. Subcutaneous edema of the left leg from mid femur to lower leg. No abscess, small knee effusion. Thrombus within the left popliteal vein extending superiorly to the left common iliac vein. IVC is patent. Patient has a 1.7 x 2.6 cm hypodense left adrenal lesion is indeterminate. Hypodense uterine fibroids. Otherwise no abnormalities to the abdominal organs no free air or fluid, bones are intact with out acute or suspicious pathology. MDM Narrative Medical decision making narrative: Patient was signed out to myself by Dr. Jorge. Patient is a 42-year-old who came in with complaint of left lower extremity pain that is been worsening and started on Friday. Patient has swelling of her lower extremity significantly compared to the right. The coloration is slightly different than the right and although she has a palpable pulse on the left is a little bit harder to palpate than the right. Patient was not able to ambulate into the department secondary to pain. Patient has no diabetes, she states she has been following with primary care at the [facility] in [place]. She states that they did a biopsy recently because they were concerned for cancer in her uterus although she has not received the results. She speaks surinamese but her first language is micronesian, I did offer assistant center director or to contact family/friends to come sit with her and she defers both of these. Today she has a large DVT running from the greater saphenous up into the common iliac. There is indeterminate hypodense left adrenal lesion and fibroid uterus. Discussed with patient no obvious exacerbating factors such as recent travel, estrogen, no hx of dvt. Attempted to speak with vascular surgery but they asked that we consult to Medicine. I do think patient is potentially a candidate for intervention with a history complicated by vaginal bleeding, I spoke with Dr. Ng the hospitalist who accepts for transfer. We discussed patient is currently on heparin, will repeat a PTT within an hour prior to transfer. If transfer is going to take more than 4 hours discussed putting patient on low molecular weight heparin instead. Patient is aware of the plan for evaluation and then decision about how to proceed with treatment, she is comfortable with the plan. PTT is still pending at time of transfer. Discharge Plan Departure Patient Disposition: [facility] Clinical Impression: DVT of leg (deep venous thrombosis) Discharge Date/Time: 12/02/18 08:55 Interventions: ED Discharge Assessment Last Done: 12/02/18 08:52 Prescriptions: No Action acetaminophen 325 MG tablet PRN Qty: 0 RF: 0
[2018-12-02 06:15] LABS: Prothrombin Time 10.9 SECONDS (10.1-12.7)
[2018-12-02 06:17] LABS: Add Manual Diff / Slide Review SLIDE REVIEW
[2018-12-02 06:18] LABS: Lactate (Lactic Acid) 1.4 mmol/L (0.7-2.1)
[2018-12-02 06:19] LABS: Blood Urea Nitrogen 15 mg/dL (7-17); Calcium 8.7 mg/dL (8.4-10.2); Carbon Dioxide 25 mmol/L (22-32); Chloride 104 mmol/L (98-107); Estimated Glomerular Filt Rate > 60.0 mL/min (>60); Glucose 185 mg/dL (70-100); HEMOLYSIS 39 (0-50); Potassium 4.7 mmol/L (3.4-5.1); Sodium 136 mmol/L (137-145)
[2018-12-02 06:24] LABS: PTT Partial Thromboplastin Tim 26 SECONDS (26.4-36.2)
--- NOTE | 2018-12-02 06:30 | DI.US.S_ITS ---
PROCEDURE: US PERIPH VENOUS LOW EXTREM LT INDICATIONS: SEVERE PAIN, EDEMA TECHNIQUE: Real-time imaging, as well as color and pulse Doppler interrogation, were performed of the lower extremity deep veins from the inguinal ligament to the popliteal fossa. COMPARISON: None. FINDINGS: The common femoral, femoral and popliteal veins are normally free of intraluminal thrombus. Veins are not completely compressible which may be related to venous hypertension as no intraluminal thrombus is seen. Color and pulse Doppler demonstrate normal phasic intraluminal flow. There is normal augmentation response to distal compression maneuver. Thrombus present throughout the greater saphenous vein. IMPRESSION: 1. No deep venous thrombosis identified within the left lower extremity. 2. Superficial thrombus within the greater saphenous vein. Dictated by: Armaan Hannah [facility] Interpreted: Caleb Clay MD on 12/02/2018 at 9:50 Approved by: Caleb Clay M.D. on 12/02/2018 at 15:50
[2018-12-02 07:00] VITALS: BP 106/60; PULSE 85; RESP 16; O2SAT 99
[2018-12-02 07:05] LABS: Anisocytosis 1+
[2018-12-02 07:06] LABS: Hypochromasia 1+; Microcytosis 1+; Ovalocytes 1+; Polychromasia 1+
[2018-12-02] MEDS: HEPARIN DRIP 25,000 UNIT/500 ML IV.SOLN 27.433 UNIT IV (07:11)
--- NOTE | 2018-12-02 07:12 | PC.NURSE ---
Heparin gtt verified with FELICE Vines and this policy writer typist.
[2018-12-02 08:08] VITALS: BP 103/76; PULSE 83; RESP 18
[2018-12-02 08:30] VITALS: BP 99/63; PULSE 88; RESP 16; O2SAT 100
[2018-12-02 08:52] VITALS: BP 99/63; PULSE 63; RESP 18; O2SAT 100
[2018-12-02 09:05] LABS: PTT Partial Thromboplastin Tim 86 SECONDS (26.4-36.2)
== END 2018-12-02 08:55 | disposition short-term general hospital (02) ==
PROVIDERS: Emergency Medicine; Emergency Provider Emergency Medicine
DX: I82.409 Acute embolism and thrombosis of unspecified deep veins of unspecified lower extremity (principal)
CPT/HCPCS: 36415; 36591; 75635; 80048; 83605; 85025; 85610; 85730; 93971; 96365; 96366; 96375; 96376; 99283; 99284; 99285; J1170; J1644; J2405; Q9967

== ENCOUNTER 2018-12-27 05:06 | Emergency (ER) | payer SELFPAY ==
[2018-12-27 05:17] VITALS: BP 135/83; PULSE 75; RESP 18; TEMP 36.4; O2SAT 96; BMI 34.6
--- NOTE | 2018-12-27 05:23 | ED.FEMALEGU ---
HPI - Female Genitourinary <Jd Chin MD - Last Filed: 12/27/18 07:15> General Chief complaint: Urogenital-Female Stated complaint: Vaginal bleeding a lot Time Seen by Provider: 12/27/18 05:22 Source: patient Mode of arrival: ambulatory Limitations: no limitations History of Present Illness HPI Narrative: The patient is on Eliquis for a left DVT. The DVT was originally diagnosed 02 December 2018. About the same time she had undergone uterine biopsy due to concern for cancer. She had been seen in clinic due to heavy vaginal bleeding and a fibroid uterus was discovered by ultrasound at that time. Those records are not available. As part of her evaluation here a CT of the abdomen was performed again revealing the uterine fibroid, noting an adrenal lesion, and the left DVT. She has doubt anticoagulant Eliquis, coming in tonight with vaginal bleeding that started yesterday. The bleeding is intermittent, yet heavy. She has mild suprapubic discomfort. She has no GI symptoms. Her appetite is normal. She denies urinary symptoms. she feels no weakness or dizziness. She denies chest pain. From the presentation here with left DVT, she was transferred to [place], [place]. She was seen by vascular surgery, and underwent left leg venogram and thrombolysis. 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 The patient has scheduled follow-up regarding the fibroid. Related Data Home Medications Medication Instructions Recorded Confirmed acetaminophen 2 tab PO Q4HR PRN #0 10/02/09 12/27/18 apixaban [Eliquis] 1 tab PO BID 12/27/18 12/27/18 ferrous sulfate 1 tab PO DAILY 12/27/18 12/27/18 metformin 1 tab PO BID 12/27/18 12/27/18 Previous Rx's Medication Instructions Recorded medroxyprogesterone [Provera] 20 mg PO DAILY #74 tab 12/27/18 Allergies Allergy/AdvReac Type Severity Reaction Status Date / Time No Known Drug Allergies Allergy Verified 12/02/18 07:08 Review of Systems <Jd Chin MD - Last Filed: 12/27/18 07:15> Review of Systems ROS Unobtainable: All systems reviewed & are unremarkable except as noted in HPI and below Constitutional Denies chills, Denies fever(s), Denies lethargy and Denies weakness ENT Ears, Nose, Mouth, and Throat: Denies vertigo, Denies dizziness, Denies epistaxis and Denies sore throat Cardiovascular Denies chest pain, Denies irregular heart rhythm, Denies lightheadedness, Denies palpitations, Denies dyspnea and Denies dyspnea on exertion Respiratory Denies cough, Denies dyspnea, Denies dyspnea on exertion and Denies wheezing Gastrointestinal Gastrointestinal: Reports abdominal pain (Suprapubic), Denies change in bowel habits, Denies diarrhea, Denies nausea and Denies vomiting Genitourinary Reports as per HPI, Reports abnormal vaginal bleeding and Denies dysuria Musculoskeletal Denies back pain and Denies muscle weakness Integumentary/Breasts Denies erythema and Denies rash Neurologic Denies vertigo, Denies dizziness and Denies weakness Endocrine Denies palpitations Allergic/Immunologic Denies wheezing PFSH <Jd Chin MD - Last Filed: 12/27/18 07:15> Medical History (Updated 12/27/18 @ 08:34 by Octavia Montesinos DO) Fibroid uterus (Acute) Left leg DVT (Acute) Lesion of adrenal gland (Acute) Diabetes (Chronic) Surgical History (Updated 12/27/18 @ 06:36 by Jd Chin MD) History of section, classical (Acute) No pertinent past surgical history (Acute) Social History Smoking Status: Never smoker Social History Smoking Status: Never smoker Exam <Jd Chin MD - Last Filed: 12/27/18 07:15> Initial Vital Signs Initial Vital Signs: Vital Signs Temperature 97.6 F 12/27/18 05:17 Pulse Rate 75 12/27/18 05:17 Respiratory Rate 18 12/27/18 05:17 Blood Pressure 135/83 12/27/18 05:17 Pulse Oximetry 96 12/27/18 05:17 Const General: cooperative and well developed Nutritional Appearance: well nourished Orientation: alert, awake, oriented x3 and not confused Eyes General: appearance normal, both eyes and all related structures Chest Chest: normal inspection of the chest Resp Auscultation: clear to auscultation bilaterally Cardio Rate: regular rate Rhythm: regular rhythm Heart Sounds: S1 normal and S2 normal Pulses: radial pulses present and dorsalis pedis present GI Inspection: non-distended Palpation: soft, no hepatosplenomegaly, No guarding, No pulsatile mass and No tender Auscultation: normal bowel sounds Back/Spine/Pelvis Back: No CVA tenderness and No ecchymosis Skin General: no rashes or lesions noted, No jaundice and No petechiae Neuro General: alert, oriented x3, gait normal and no focal motor deficits Speech: speech normal Extrem General: full ROM, no pedal edema and no calf tenderness Other: No swelling to the left calf. 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 Psych Appearance: well kempt Mental Status: mental status grossly normal Attitude: cooperative Thought Content: normal Judgment: judgment good <Octavia Montesinos DO - Last Filed: 12/27/18 10:20> Initial Vital Signs Initial Vital Signs: Vital Signs Temperature 97.6 F 12/27/18 05:17 Pulse Rate 75 12/27/18 05:17 Respiratory Rate 18 12/27/18 05:17 Blood Pressure 135/83 12/27/18 05:17 Pulse Oximetry 96 12/27/18 05:17 Course <Jd Chin MD - Last Filed: 12/27/18 07:15> Course Narrative: 06:13. 12/27/2018. Despite the current uterine bleeding, her H/H has improved. H/H on 12/02/2018 was 8.4/27.2. H/H today is 11.5/35.6. 07:00. 12/27/2018. Records from [facility] have been reviewed. A left lower extremity ultrasound has been ordered to review the current status of the recent DVT. Once the ultrasound result is available, further disposition regarding the gynecological bleeding, and ongoing management of the DVT(i.e., ongoing anticoagulation, choice of medications, potential inferior vena cava filter) need to be established. Care will be transitioned to Dr. Montesinos at change of shift. Orders Ordered: ED Orders 12/27/18 05:30 Complete Blood Count AUTO DIFF Stat Comprehensive Metabolic Panel Stat Partial Thromboplastin Time Stat Prothrombin Time INR Stat Type and Screen Stat 12/27/18 05:45 Urinalysis and Microscopic Stat 12/27/18 06:32 periph venous low extrem lt Stat Discontinued Medications Sodium Chloride (Normal Saline 0.9%) 1,000 mls @ 150 mls/hr IV CONT AUNDREA Last Infusion: 12/27/18 08:46 Dose: 150 mls/hr Admin: 12/27/18 05:49 Dose: 150 mls/hr Medroxyprogesterone Acetate (Medroxyprogesterone) 20 mg PO NOW ONE Stop: 12/27/18 08:26 Last Admin: 12/27/18 08:43 Dose: 20 mg Vital Signs - 8 hr 12/27/18 05:17 12/27/18 05:53 12/27/18 07:07 Temperature 97.6 F Pulse Rate 75 71 66 Respiratory Rate 18 15 16 Blood Pressure 135/83 Blood Pressure [Left Arm] 122/76 102/56 L Pulse Oximetry 96 97 100 12/27/18 08:08 12/27/18 08:46 Temperature Pulse Rate 70 64 Respiratory Rate 16 16 Blood Pressure 108/72 Blood Pressure [Left Arm] 106/63 Pulse Oximetry 98 100 <Octavia Montesinos, DO - Last Filed: 12/27/18 10:20> Orders Ordered: ED Orders 12/27/18 05:30 Complete Blood Count AUTO DIFF Stat Comprehensive Metabolic Panel Stat Partial Thromboplastin Time Stat Prothrombin Time INR Stat Type and Screen Stat 12/27/18 05:45 Urinalysis and Microscopic Stat 12/27/18 06:32 [facility] venous low extrem lt Stat Discontinued Medications Sodium Chloride (Normal Saline 0.9%) 1,000 mls @ 150 mls/hr IV CONT AUNDREA Last Infusion: 12/27/18 08:46 Dose: 150 mls/hr Admin: 12/27/18 05:49 Dose: 150 mls/hr Medroxyprogesterone Acetate (Medroxyprogesterone) 20 mg PO NOW ONE Stop: 12/27/18 08:26 Last Admin: 12/27/18 08:43 Dose: 20 mg Vital Signs - 8 hr 12/27/18 05:17 12/27/18 05:53 12/27/18 07:07 Temperature 97.6 F Pulse Rate 75 71 66 Respiratory Rate 18 15 16 Blood Pressure 135/83 Blood Pressure [Left Arm] 122/76 102/56 L Pulse Oximetry 96 97 100 12/27/18 08:08 12/27/18 08:46 Temperature Pulse Rate 70 64 Respiratory Rate 16 16 Blood Pressure 108/72 Blood Pressure [Left Arm] 106/63 Pulse Oximetry 98 100 MDM - Female Genitourinary <Jd Chin MD - Last Filed: 12/27/18 07:15> Lab Data Result diagrams: 12/27/18 05:30 12/27/18 05:30 Lab Results 12/27/18 12/27/18 12/27/18 Range/Units 05:30 05:30 05:30 WBC 7.6 (4.5-11.0) X10^3/uL RBC 4.77 (4.0-5.2) X10^6/uL Hgb 11.5 L (12.0-16.0) g/dL Hct 35.6 L (36-46) % MCV 74.8 L (80-100) fL MCH 24.0 L (26-34) PG MCHC 32.1 (30-36) % RDW 30.1 H (11.6-14.8) % Plt Count 364 (150-400) X10^3/uL Neut % (Auto) 50.8 (50-75) % Lymph % (Auto) 35.2 (25-40) % [place] % (Auto) 10.6 (3-14) % Eos % (Auto) 2.4 (2-4) % Baso % (Auto) 1.0 (0-2) % Neut # (Auto) 3900 (4546-1383) /uL Lymph # (Auto) 2700 (5931-4751) /uL [place] # (Auto) 800 (0-900) /uL Eos # (Auto) 200 (0-450) /uL Baso # (Auto) 100 (0-100) /uL RBC Morphology See below Anisocytosis 2+ H Microcytosis 1+ H PT 12.0 (10.1-12.7) SECONDS INR 1.0 (0.9-1.3) APTT 29 D (26.4-36.2) SECONDS Sodium 139 (137-145) mmol/L Potassium 3.8 (3.4-5.1) mmol/L Chloride 105 (98-107) mmol/L Carbon Dioxide 26 (22-32) mmol/L BUN 10 (7-17) mg/dL Creatinine 0.70 (0.52-1.04) mg/dL Estimated GFR > 60.0 (>60) mL/min BUN/Creatinine Ratio 14.3 (6-22) Glucose 135 H (70-100) mg/dL Calcium 9.4 (8.4-10.2) mg/dL Total Bilirubin 0.3 (0.2-1.3) mg/dL AST 19 (14-36) IU/L ALT 7 L (9-52) IU/L Alkaline Phosphatase 46 (38-126) U/L Total Protein 7.9 (6.3-8.2) g/dL Albumin 4.1 (3.5-5.0) g/dL Globulin 3.8 (1.7-4.1) g/dL Albumin/Globulin Ratio 1.1 (1.0-2.8) Urine Color Urine Appearance Urine pH (4.5-8.0) Ur Specific [employer] (1.000-1.035) Urine Protein (Negative) Urine Glucose (UA) (Negative) g/dL Urine Ketones (NEGATIVE) Urine Occult Blood (Negative) Urine Nitrate Urine Bilirubin (NEGATIVE) Urine Urobilinogen (0.2) E.U./dL Ur Leukocyte Esterase Urine RBC (0-5/HPF) Urine WBC (0-5/HPF) Ur Squamous Epith Cells (0-5/HPF) Ur Transition Epith Cell (0-5/HPF) Urine Bacteria (None) Ur Culture Indicated? Blood Type Antibody Screen 12/27/18 12/27/18 Range/Units 05:30 05:45 WBC (4.5-11.0) X10^3/uL RBC (4.0-5.2) X10^6/uL Hgb (12.0-16.0) g/dL Hct (36-46) % MCV (80-100) fL MCH (26-34) PG MCHC (30-36) % RDW (11.6-14.8) % Plt Count (150-400) X10^3/uL Neut % (Auto) (50-75) % Lymph % (Auto) (25-40) % [place] % (Auto) (3-14) % Eos % (Auto) (2-4) % Baso % (Auto) (0-2) % Neut # (Auto) (5258-4898) /uL Lymph # (Auto) (2066-4368) /uL [place] # (Auto) (0-900) /uL Eos # (Auto) (0-450) /uL Baso # (Auto) (0-100) /uL RBC Morphology Anisocytosis Microcytosis PT (10.1-12.7) SECONDS INR (0.9-1.3) APTT (26.4-36.2) SECONDS Sodium (137-145) mmol/L Potassium (3.4-5.1) mmol/L Chloride (98-107) mmol/L Carbon Dioxide (22-32) mmol/L BUN (7-17) mg/dL Creatinine (0.52-1.04) mg/dL Estimated GFR (>60) mL/min BUN/Creatinine Ratio (6-22) Glucose (70-100) mg/dL Calcium (8.4-10.2) mg/dL Total Bilirubin (0.2-1.3) mg/dL AST (14-36) IU/L ALT (9-52) IU/L Alkaline Phosphatase (38-126) U/L Total Protein (6.3-8.2) g/dL Albumin (3.5-5.0) g/dL Globulin (1.7-4.1) g/dL Albumin/Globulin Ratio (1.0-2.8) Urine Color Red Urine Appearance Sl cloudy Urine pH 7.0 (4.5-8.0) Ur Specific [employer] <=1.005 (1.000-1.035) Urine Protein 3+ H (Negative) Urine Glucose (UA) Negative (Negative) g/dL Urine Ketones Negative (NEGATIVE) Urine Occult Blood 3+ H (Negative) Urine Nitrate TNP Urine Bilirubin Negative (NEGATIVE) Urine Urobilinogen 0.2 (0.2) E.U./dL Ur Leukocyte Esterase TNP Urine RBC >100/hpf H (0-5/HPF) Urine WBC 1-5/hpf (0-5/HPF) Ur Squamous Epith Cells 0-1 /hpf (0-5/HPF) Ur Transition Epith Cell 1-5/hpf (0-5/HPF) Urine Bacteria Occasional (0-1) (None) Ur Culture Indicated? Cult not indicated Blood Type A Positive Antibody Screen Negative Point of Care Testing Test Results Negative <Octavia Botnick, DO - Last Filed: 12/27/18 10:20> Lab Data Lab Results 12/27/18 12/27/18 12/27/18 Range/Units 05:30 05:30 05:30 WBC 7.6 (4.5-11.0) X10^3/uL RBC 4.77 (4.0-5.2) X10^6/uL Hgb 11.5 L (12.0-16.0) g/dL Hct 35.6 L (36-46) % MCV 74.8 L (80-100) fL MCH 24.0 L (26-34) PG MCHC 32.1 (30-36) % RDW 30.1 H (11.6-14.8) % Plt Count 364 (150-400) X10^3/uL Neut % (Auto) 50.8 (50-75) % Lymph % (Auto) 35.2 (25-40) % [place] % (Auto) 10.6 (3-14) % Eos % (Auto) 2.4 (2-4) % Baso % (Auto) 1.0 (0-2) % Neut # (Auto) 3900 (5734-9446) /uL Lymph # (Auto) 2700 (5468-2966) /uL [place] # (Auto) 800 (0-900) /uL Eos # (Auto) 200 (0-450) /uL Baso # (Auto) 100 (0-100) /uL RBC Morphology See below Anisocytosis 2+ H Microcytosis 1+ H PT 12.0 (10.1-12.7) SECONDS INR 1.0 (0.9-1.3) APTT 29 D (26.4-36.2) SECONDS Sodium 139 (137-145) mmol/L Potassium 3.8 (3.4-5.1) mmol/L Chloride 105 (98-107) mmol/L Carbon Dioxide 26 (22-32) mmol/L BUN 10 (7-17) mg/dL Creatinine 0.70 (0.52-1.04) mg/dL Estimated GFR > 60.0 (>60) mL/min BUN/Creatinine Ratio 14.3 (6-22) Glucose 135 H (70-100) mg/dL Calcium 9.4 (8.4-10.2) mg/dL Total Bilirubin 0.3 (0.2-1.3) mg/dL AST 19 (14-36) IU/L ALT 7 L (9-52) IU/L Alkaline Phosphatase 46 (38-126) U/L Total Protein 7.9 (6.3-8.2) g/dL Albumin 4.1 (3.5-5.0) g/dL Globulin 3.8 (1.7-4.1) g/dL Albumin/Globulin Ratio 1.1 (1.0-2.8) Urine Color Urine Appearance Urine pH (4.5-8.0) Ur Specific [employer] (1.000-1.035) Urine Protein (Negative) Urine Glucose (UA) (Negative) g/dL Urine Ketones (NEGATIVE) Urine Occult Blood (Negative) Urine Nitrate Urine Bilirubin (NEGATIVE) Urine Urobilinogen (0.2) E.U./dL Ur Leukocyte Esterase Urine RBC (0-5/HPF) Urine WBC (0-5/HPF) Ur Squamous Epith Cells (0-5/HPF) Ur Transition Epith Cell (0-5/HPF) Urine Bacteria (None) Ur Culture Indicated? Blood Type Antibody Screen 12/27/18 12/27/18 Range/Units 05:30 05:45 WBC (4.5-11.0) X10^3/uL RBC (4.0-5.2) X10^6/uL Hgb (12.0-16.0) g/dL Hct (36-46) % MCV (80-100) fL MCH (26-34) PG MCHC (30-36) % RDW (11.6-14.8) % Plt Count (150-400) X10^3/uL Neut % (Auto) (50-75) % Lymph % (Auto) (25-40) % [place] % (Auto) (3-14) % Eos % (Auto) (2-4) % Baso % (Auto) (0-2) % Neut # (Auto) (4420-8576) /uL Lymph # (Auto) (4760-0999) /uL [place] # (Auto) (0-900) /uL Eos # (Auto) (0-450) /uL Baso # (Auto) (0-100) /uL RBC Morphology Anisocytosis Microcytosis PT (10.1-12.7) SECONDS INR (0.9-1.3) APTT (26.4-36.2) SECONDS Sodium (137-145) mmol/L Potassium (3.4-5.1) mmol/L Chloride (98-107) mmol/L Carbon Dioxide (22-32) mmol/L BUN (7-17) mg/dL Creatinine (0.52-1.04) mg/dL Estimated GFR (>60) mL/min BUN/Creatinine Ratio (6-22) Glucose (70-100) mg/dL Calcium (8.4-10.2) mg/dL Total Bilirubin (0.2-1.3) mg/dL AST (14-36) IU/L ALT (9-52) IU/L Alkaline Phosphatase (38-126) U/L Total Protein (6.3-8.2) g/dL Albumin (3.5-5.0) g/dL Globulin (1.7-4.1) g/dL Albumin/Globulin Ratio (1.0-2.8) Urine Color Red Urine Appearance Sl cloudy Urine pH 7.0 (4.5-8.0) Ur Specific [employer] <=1.005 (1.000-1.035) Urine Protein 3+ H (Negative) Urine Glucose (UA) Negative (Negative) g/dL Urine Ketones Negative (NEGATIVE) Urine Occult Blood 3+ H (Negative) Urine Nitrate TNP Urine Bilirubin Negative (NEGATIVE) Urine Urobilinogen 0.2 (0.2) E.U./dL Ur Leukocyte Esterase TNP Urine RBC >100/hpf H (0-5/HPF) Urine WBC 1-5/hpf (0-5/HPF) Ur Squamous Epith Cells 0-1 /hpf (0-5/HPF) Ur Transition Epith Cell 1-5/hpf (0-5/HPF) Urine Bacteria Occasional (0-1) (None) Ur Culture Indicated? Cult not indicated Blood Type A Positive Antibody Screen Negative Point of Care Testing Test Results Negative Imaging Data Venous US: Radiologist's impression: PROCEDURE: [facility] VENOUS LOW EXTREM LT INDICATIONS: RECENT LLE DVT; RECENT THROMBOLYSIS TECHNIQUE: Real-time imaging, as well as color and pulse Doppler interrogation, were performed of the lower extremity deep veins from the inguinal ligament to the popliteal fossa. COMPARISON: [facility], US, US PERIPH VENOUS LOW EXTREM LT, 12/02/2018, 6:36. FINDINGS: The common femoral, femoral and popliteal veins are normally compressible, and free of intraluminal thrombus. Color and pulse Doppler demonstrate normal phasic intraluminal flow. There is normal augmentation response to distal compression maneuver. IMPRESSION: The previously seen left lower extremity deep venous thrombosis has resolved. Note: No significant discrepancy from the preliminary report. Dictated by: Elliot Espinoza M.D. on 12/27/2018 at 6:29 MDM Narrative Medical decision making narrative: Patient signed out to me by rn night provider. I have seen and evaluated her myself. She confirms that she is on Eliquis for a recent DVT. She states last night she had excessive vaginal bleeding changing her pad every 45 minutes. His she has a known uterine fibroid. She denies any pain. 8:00 a.m. spoke with vascular surgery [facility]. Alondra MACEDO, unfortunately she states she is not able comment on anticoagulation. She states interventional radiology did the procedure, whoever is following her for anticoagulation would be better equipped to answer those questions. Spoke with Dr. Perez on-call for OB. She spoke with Dr. Grubbs painter decorator, no contraindication to starting progesterone. At this time patient is hemodynamically stable. She has known uterine fibroids hemoglobin and hematocrit have improved since previously. At this time she likely needs to stay on Eliquis. No contraindication to adding progesterone to help with vaginal bleeding. She states that she does have follow-up for her uterine fibroid. Discharge Plan Departure Patient Disposition: Home Clinical Impression: Vaginal bleeding Discharge Date/Time: 12/27/18 08:50 Interventions: ED Discharge Assessment Last Done: 12/27/18 08:46 Instructions: DI for Vaginal Bleeding Activity Restrictions/Additional Instructions: *You have been diagnosed with vaginal bleeding *What to do: You need to follow up with painter decorator in regards to uterine fibroid and vaginal bleeding *Continue to take medications as directed The Provera 10 mg Take 2 tablets every 2 hours until bleeding stops or significantly slows down. Then take 2 tablets every 4 hours for 48 hours. Then take 2 tablets every 6 hours for 48 hours. Then take 2 tablets every 8 hours for 48 hours. Then take 2 tablets every 12 hours for 48 hours. Then take 2 tablets once a day for 7 days and stop *Follow up with your primary care provider in 2-3 days, Call of [facility] SPECIALIST appointment *Return to ER if you should have significant vaginal bleeding more than 1 pad an hour, increased pain dizziness, lightheadedness or any new, worsening or concerning symptoms Prescriptions: New medroxyprogesterone [Provera] 10 mg tablet 20 mg PO DAILY Qty: 74 RF: 0 No Action acetaminophen 325 MG tablet 2 tab PO Q4HR PRN (Reason: Pain, Mild) Qty: 0 RF: 0 metformin 850 mg tablet 1 tab PO BID RF: 0 ferrous sulfate 325 mg (65 mg iron) tablet 1 tab PO DAILY RF: 0 Eliquis 5 mg (74 tabs) tablets,dose pack 1 tab PO BID RF: 0 Referrals: Lissy Grubbs MD [Physician] - Scarlett Gamino MD [Physician] - Jd Guillen MD [Physician] -
[2018-12-27 05:42] LABS: Add Manual Diff / Slide Review NO; Basophils Absolute Auto 100 /uL (0-100); Eosinophils Absolute Auto 200 /uL (0-450); Eosinophils Percent Auto 2.4 % (2-4); Hematocrit 35.6 % (36-46); Hemoglobin 11.5 g/dL (12.0-16.0); Lymphocytes Absolute Auto 2700 /uL (1100-4500); Lymphocytes Percent Auto 35.2 % (25-40); Mean Corpuscular HGB Conc 32.1 % (30-36); Mean Corpuscular Volume 74.8 fL (80-100); Monocytes Absolute Auto 800 /uL (0-900); Monocytes Percent Auto 10.6 % (3-14); Neutrophils Absolute Auto 3900 /uL (1500-7000); Neutrophils Percent Auto 50.8 % (50-75); Platelet Count 364 X10^3/uL (150-400); Red Blood Cell Count 4.77 X10^6/uL (4.0-5.2); Red Cell Distribution Width 30.1 % (11.6-14.8); White Blood Cell Count 7.6 X10^3/uL (4.5-11.0)
[2018-12-27] MEDS: SODIUM CHLORIDE 0.9% 1,000 ML 150 ML IV (05:49)
[2018-12-27 05:53] VITALS: BP 122/76; PULSE 71; RESP 15; O2SAT 97
[2018-12-27 05:55] LABS: PTT Partial Thromboplastin Tim 29 SECONDS (26.4-36.2)
[2018-12-27 05:57] LABS: Alanine Aminotransferase 7 IU/L (9-52); Albumin 4.1 g/dL (3.5-5.0); Albumin Globulin Ratio 1.1 (1.0-2.8); Alkaline Phosphatase 46 U/L (38-126); Aspartate Aminotransferase 19 IU/L (14-36); BUN Creatinine Ratio 14.3 (6-22); Bilirubin Total 0.3 mg/dL (0.2-1.3); Blood Urea Nitrogen 10 mg/dL (7-17); Calcium 9.4 mg/dL (8.4-10.2); Carbon Dioxide 26 mmol/L (22-32); Chloride 105 mmol/L (98-107); Estimated Glomerular Filt Rate > 60.0 mL/min (>60); Globulin 3.8 g/dL (1.7-4.1); Glucose 135 mg/dL (70-100); HEMOLYSIS < 15 (0-50); Potassium 3.8 mmol/L (3.4-5.1); Sodium 139 mmol/L (137-145); Total Protein 7.9 g/dL (6.3-8.2)
[2018-12-27 06:10] LABS: Appearance Urine UA SL CLOUDY; Bilirubin Urine UA NEGATIVE (NEGATIVE); Color Urine UA RED; Glucose Urine UA NEGATIVE (Negative); Ketones Urine UA NEGATIVE (NEGATIVE); Occult Blood Urine UA 3+ (Negative); Protein Urine UA 3+ (Negative); Specific Gravity Urine UA <=1.005 (1.000-1.035); Urobilinogen Urine UA 0.2 E.U./dL (0.2)
[2018-12-27 06:12] LABS: Bacteria Urine Occasional (0-1); Culture Indicated Urine Cult Not Indicated; RBC Urine >100/HPF (0-5/HPF); Squamous Epithelial Cell Urine 0-1 /HPF (0-5/HPF); Transitional Epi Cells Urine 1-5/HPF (0-5/HPF); WBC Urine 1-5/HPF (0-5/HPF)
[2018-12-27 06:23] LABS: Anisocytosis 2+; Microcytosis 1+
--- NOTE | 2018-12-27 06:32 | DI.US.S_ITS ---
PROCEDURE: [facility] VENOUS LOW EXTREM LT INDICATIONS: RECENT LLE DVT; RECENT THROMBOLYSIS TECHNIQUE: Real-time imaging, as well as color and pulse Doppler interrogation, were performed of the lower extremity deep veins from the inguinal ligament to the popliteal fossa. COMPARISON: [facility], [facility] VENOUS LOW EXTREM LT, 12/02/2018, 6:36. FINDINGS: The common femoral, femoral and popliteal veins are normally compressible, and free of intraluminal thrombus. Color and pulse Doppler demonstrate normal phasic intraluminal flow. There is normal augmentation response to distal compression maneuver. IMPRESSION: The previously seen left lower extremity deep venous thrombosis has resolved. Note: No significant discrepancy from the preliminary report. Dictated by: Elliot Espinoza M.D. on 12/27/2018 at 6:29 Approved by: Elliot Espinoza M.D. on 12/27/2018 at 6:29
[2018-12-27 07:07] VITALS: BP 102/56; PULSE 66; RESP 16; O2SAT 100
[2018-12-27 08:08] VITALS: BP 106/63; PULSE 70; RESP 16; O2SAT 98
[2018-12-27] MEDS: MEDROXYPROGESTERONE ACETATE 10 MG TABLET 20 MG PO (08:43)
[2018-12-27 08:46] VITALS: BP 108/72; PULSE 64; RESP 16; O2SAT 100
== END 2018-12-27 08:50 | disposition home or self-care (01) ==
PROVIDERS: Emergency Medicine; Emergency Provider Emergency Medicine
DX: N93.9 Abnormal uterine and vaginal bleeding, unspecified (principal)
CPT/HCPCS: 36591; 80053; 81001; 81025; 85025; 85610; 85730; 86850; 86900; 86901; 93971; 96360; 96361; 99284

== ENCOUNTER 2019-03-28 00:06 | Emergency (ER) | payer SELFPAY ==
--- NOTE | 2019-03-28 00:10 | ED_ITS ---
HPI - Abdominal Pain General Chief Complaint: GI Bleed Stated Complaint: pain lower stomach/blood when went to bathroom Time Seen by Provider: 03/28/19 00:10 Source: patient and family (daughter) Mode of arrival: Ambulatory Limitations: language barrier (patient does speak swedish but daughter occasionally assists) History of Present Illness HPI narrative: This is a 43-year-old female who comes to the emergency de partment with complaint of abdominal pain and 1 episode of bright red blood in her stool. Patient states that she had started having abdominal pain this evening. She complains more on the left lower abdominal area but a little bit just across the abdomen in the lower area. She denies fevers, she denies any nausea or vomiting. She states her throat does feel dry. She denies any new chest pain or pressure. She felt a little short of breath yesterday and with exertion. Patient states that she had a diarrhea like stool that was very small and noticed a small 5th size amount of light red blood in the toilet. Patient states it definitely came from the rectum. She has not had any urgency f requency or hematuria. She was having vaginal bleeding had a hysterectomy in January and has not had any additional episodes. She denies any syncope or lightheadedness. 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 In her left lower extremity that required intervention with IR and transfer to [facility] from [facility] in November of 2018. Patient has been taking Eliquis since then. She is also on metformin for diabetes. She denies any other surgical interventions. She denie s any allergies to medications. Denies any tobacco, alcohol or illicit. Related Data Home Medications Medication Instructions Recorded Confirmed acetaminophen 2 tab PO Q4HR PRN #0 10/02/09 12/27/18 apixaban [Eliquis] 1 tab PO BID 12/27/18 12/27/18 ferrous sulfate 1 tab PO DAILY 12/27/18 12/27/18 metformin 1 tab PO BID 12/27/18 12/27/18 Previous Rx's Medication Instructions Recorded medroxyprogesterone [Provera] 20 mg PO DAILY #74 tab 12/27/18 ciprofloxacin HCl 500 mg PO BID #20 tab 03/28/19 metronidazole [Flagyl] 500 mg PO TID #30 tab 03/28/19 Allergies Allergy/AdvReac Type Severity Reaction Status Date / Time No Known Drug Allergies Allergy Verified 12/02/18 07:08 Review of Systems Review of Systems ROS Unobtainable: All systems reviewed & are unremarkable except as noted in HPI and below Constitutional Constitutional: Denies chills, Denies fever(s), Denies lethargy and Denies weakness ENT Ears, Nose, Mouth, and Throat: Reports other (dry throat) Cardiovascular Cardiovascular: Denies chest pain, Denies irregular heart rhythm, Denies lightheadedness, Denies palpitations, Denies dyspnea, Reports dyspnea on exertion and Denies orthopnea Respiratory Respiratory: Denies chest congestion, Denies cough, Denies hemoptysis, Denies dyspnea, Reports dyspnea on exertion and Denies wheezing Gastrointestinal Gastrointestinal: Reports abdominal pain, Denies belching, Denies melena, Reports hematochezia, Denies change in bowel habits, Denies constipation, Reports diarrhea, Denies nausea and Denies vomiting Genitourinary Genitourinary: Reports as per HPI, Denies abnormal vaginal bleeding, Denies hematuria, Denies urinary frequency, Denies dysuria, Denies flank pain, Denies urinary incontinence, Denies urinary hesitancy, Denies urinary urgency and Denies vaginal discharge Musculoskeletal Musculoskeletal: Denies back pain Integumentary/Breasts Skin/Breast: Denies unusual bruising Neurologic Neurologic: Denies weakness Endocrine Endocrine: Denies palpitations Allergic/Immunologic Allergic/Immunologic: Denies wheezing Patient History Medical History (Updated 03/28/19 @ 02:09 by Cathleen Samuel DO) Diabetes (Chronic) Fibroid uterus (Acute) Left leg DVT (Acute) Lesion of adrenal gland (Acute) Surgical History (Updated 03/28/19 @ 00:30 by Cathleen Samuel DO) H/O: hysterectomy (Acute) History of section, classical (Acute) No pertinent past surgical history (Acute) Social History Smoking Status: Never smoker alcohol intake frequency: 0-2 drinks per day Substance Use Type: does not use Exam Narrative Exam Narrative: GENERAL: Alert and oriented x three, well-nourished, well- appearing female in mild distress. HEENT: Head normocephalic, atraumatic, EOMI, pupils reactive, face symmetric, moist mucous membranes NECK: Supple, full range of motion CARDIOVASCULAR: Regular rate and rhythm without murmurs, rubs or gallops. RESPIRATORY: Breath sounds equal bilaterally, no wheezes rales or rhonchi. ABDOMEN: Soft, moderate left lower quadrant tenderness. Normoactive bowel sounds all 4 quadrants. No guarding or rebound, rigidity, no mass. patient has small external hemorrhoid which is tender to palpation. And patient does not have any nir blood on digital rectal exam but is stool occult positive. : No CVA tenderness EXTREMITIES: Normal range of motion, no clubbing or edema. Neurovascularly intact NEUROLOGICAL: Cranial nerves II through XII grossly intact. Moving all extremities SKIN: Warm, dry, no petechiae, no rashes or lesions. Initial Vital Signs Initial Vital Signs: Vital Signs Temperature 97.5 F L 03/28/19 00:16 Pulse Rate 90 03/28/19 00:16 Respiratory Rate 16 03/28/19 00:16 Blood Pressure 125/80 03/28/19 00:16 Pulse Oximetry 97 03/28/19 00:16 Course Orders Ordered: ED Orders 03/28/19 00:22 CT abdomen pelvis w con Stat 03/28/19 00:33 Complete Blood Count AUTO DIFF Stat Comprehensive Metabolic Panel Stat Lipase Stat Discontinued Medications Ciprofloxacin (Cipro) 500 mg PO NOW ONE Stop: 03/28/19 02:29 Last Admin: 03/28/19 02:36 Dose: 500 mg Documented by: ADRIENNE Sodium Chloride (Normal Saline 0.9%) 1,000 mls @ 1,000 mls/hr IV BOLUS ONE Stop: 03/28/19 01:21 Last Infusion: 03/28/19 01:48 Dose: 0 mls/hr Documented by: Admin: 03/28/19 00:35 Dose: 1,000 mls/hr Documented by: DANIEL Ketorolac Tromethamine (Toradol) 30 mg IV NOW ONE Stop: 03/28/19 00:23 Last Admin: 03/28/19 00:35 Dose: 30 mg Documented by: DANIEL Metronidazole (Metronidazole) 500 mg PO NOW ONE Stop: 03/28/19 02:29 Last Admin: 03/28/19 02:36 Dose: 500 mg Documented by: ADRIENNE Vital Signs Vital signs: Vital Signs - 8 hr 03/28/19 00:16 03/28/19 00:45 03/28/19 01:24 Temperature 97.5 F L Pulse Rate 90 75 82 Respiratory Rate 16 18 17 Blood Pressure 125/80 Blood Pressure [Left Arm] 113/81 104/67 Pulse Oximetry 97 100 99 03/28/19 01:51 03/28/19 02:30 Temperature Pulse Rate 90 70 Respiratory Rate 15 Blood Pressure Blood Pressure [Left Arm] 105/58 L 110/72 Pulse Oximetry 98 97 MDM - Abdominal Pain Lab Data Attestation: I reviewed the patient's lab results. Result diagrams: 03/28/19 00:33 03/28/19 00:33 Labs: Lab Results 03/28/19 03/28/19 Range/Units 00:33 00:33 WBC 10.2 (4.5-11.0) X10^3/uL RBC 4.61 (4.0-5.2) X10^6/uL Hgb 12.7 (12.0-16.0) g/dL Hct 37.4 (36-46) % MCV 81.2 (80-100) fL MCH 27.5 (26-34) PG MCHC 33.9 (30-36) % RDW 14.0 (11.6-14.8) % Plt Count 325 (150-400) X10^3/uL Neut % (Auto) 40.9 L (50-75) % Lymph % (Auto) 45.4 H (25-40) % [place] % (Auto) 11.0 (3-14) % Eos % (Auto) 2.1 (2-4) % Baso % (Auto) 0.6 (0-2) % Neut # (Auto) 4200 (1984-7846) /uL Lymph # (Auto) 4600 H (4097-2459) /uL [place] # (Auto) 1100 H (0-900) /uL Eos # (Auto) 200 (0-450) /uL Baso # (Auto) 100 (0-100) /uL Plt Morphology Comment . RBC Morphology Normal morphology Sodium 137 (137-145) mmol/L Potassium 3.9 (3.4-5.1) mmol/L Chloride 102 (98-107) mmol/L Carbon Dioxide 27 (22-32) mmol/L BUN 13 (7-17) mg/dL Creatinine 0.70 (0.52-1.04) mg/dL Estimated GFR > 60.0 (>60) mL/min BUN/Creatinine Ratio 18.6 (6-22) Glucose 134 H (70-100) mg/dL Calcium 9.6 (8.4-10.2) mg/dL Total Bilirubin 0.5 (0.2-1.3) mg/dL AST 22 (14-36) IU/L ALT 18 (<35) IU/L Alkaline Phosphatase 42 (38-126) U/L Total Protein 7.7 (6.3-8.2) g/dL Albumin 4.2 (3.5-5.0) g/dL Globulin 3.5 (1.7-4.1) g/dL Albumin/Globulin Ratio 1.2 (1.0-2.8) Lipase 232 (23-300) U/L Point of care testing: Urine Dip Bedside Urine Glucose Negative Bedside Urine Bilirubin - Negative Bedside Urine Ketone - Negative Urine Specific [place] 1.005 Bedside Urine Occult Blood - Negative Bedside Urine pH 6.0 Bedside Urine Protein - Negative Bedside Urine Urobilinogen - Negative Bedside Urine Nitrite - Negative Bedside Urine Leukocytes - Negative Esterase Imaging Data CT scan - abdomen: Radiologist's impression: Heterogeneous the construction min pelvis may represent an abnormally thickened vaginal cuff. There is irregularity of the anterior well as the anal rectal region, infection, inflammation or even fistula cannot be excluded. Left adrenal nodule appearing to be enlarging. Close follow-up and advised. Further workup to include MRI or noncontrast CT. [facility] Narrative Medical decision making narrative: Patient Toradol here in the department with improvement of her pain lab work does not show any major abnormalities other than slightly elevated glucose. Patient has some thickening of the mid pelvis which could be a thickened vaginal cough and irregularity of the anterior bridges in the anorectal region which patient was quite tender on digital rectal exam. Possibly infection, inflation although fistula cannot be excluded patient has not been describing any symptoms that would be consistent with a fistula today. She has had one episode of BRB with bowel movement. Discussed with General surgery, Dr. Murrieta. Patient has ever eye brow all with normal vitals, labs are normal but has thickening at the vaginal cuff as well as thickening of the anterior rectum. No obvious signs of fistula and after re-discussing with patient she continues not to have any symptoms that would be consistent with a fistula. He would recommend follow-up with OBGYN regarding the thickening at the cuff but there also happy to follow with the patient potentially get colonos copy in the short term. We discussed putting patient on a short course of antibiotics. Patient is aware of the plan. She is comfortable with this plan and will follow up with OBGYN, she was given a disc with images. We did discuss the potential differential and if she started having changes that would be consistent with fistula or worsening infection that she should return. Patient felt comfortable with this. Her daughter was also at bedside and aware of these as well. patient defers any pain medication, states that she has left over from her prior surgery that she can use as needed. They also have MiraLax that she can take for any constipation. Discharge Plan Departure Patient Disposition: Home Clinical Impression: Proctitis Discharge Date/Time: 03/28/19 02:57 Activity Restrictions/Additional Instructions: Follow up with general surgery for recheck and to get set up for a colonoscopy, I also recommend you follow up with veterinary parasitologist for recheck and to discuss your CT changes. Take your images on CD disk with you to your appointment. Take antibiotics until gone. You may continue your home medications as prescribed. Return to the emergency department for fevers greater 100.4 F, rapidly worsening pain, persistent vomiting, frequent and increasing bloody stools, bloody stools with large clots, lightheadedness, passing out, chest pain shortness of breath, rapidly worsening abdominal or flank pain or other new or concerning symptoms. Prescriptions: New metronidazole [Flagyl] 500 mg tablet 500 mg PO TID Qty: 30 RF: 0 ciprofloxacin HCl 500 mg tablet 500 mg PO BID Qty: 20 RF: 0 No Action acetaminophen 325 MG tablet 2 tab PO Q4HR PRN (Reason: Pain, Mild) Qty: 0 RF: 0 metformin 850 mg tablet 1 tab PO BID RF: 0 ferrous sulfate 325 mg (65 mg iron) tablet 1 tab PO DAILY RF: 0 Eliquis 5 mg (74 tabs) tablets,dose pack 1 tab PO BID RF: 0 medroxyprogesterone [Provera] 10 mg tablet 20 mg PO DAILY Qty: 74 RF: 0
[2019-03-28 00:16] VITALS: BP 125/80; PULSE 90; RESP 16; TEMP 36.4; O2SAT 97; BMI 31.8
--- NOTE | 2019-03-28 00:22 | DI.CT.S_ITS ---
PROCEDURE: CT ABDOMEN PELVIS W CON INDICATIONS: LLQ pain, episode of brb in stool, hysterectomy jan 2019 TECHNIQUE: After the administration of oral and intravenous contrast, 5 mm thick sections acquired from the diaphragms to the symphysis. 5 mm thick coronal and sagittal reformats were performed. For radiation dose reduction, the following was used: automated exposure control, adjustment of mA and/or kV according to patient size. COMPARISON: [facility], CT, CT ANGIO ABD AORTA RUNOFF, 12/02/2018, 5:54. FINDINGS: Image quality: The diagnostic. ABDOMEN: Lung bases: Lung bases are clear. Heart size is normal. Solid organs: Liver is normal in size and enhancement. Gallbladder is not enlarged or inflamed. Biliary system is non-dilated. Pancreas enhances normally. Spleen is normal in size and enhancement. Kidneys are normal in size and enhancement, without hydronephrosis. There is a left adrenal nodule evident that measures up to approximately 2.1 x 1.6 cm (image 17, series 2), which is unchanged since the prior study, but is not accurately or adequately characterized. The right adrenal is unremarkable. Peritoneum and bowel: There is a small hiatal hernia. The stomach is otherwise unremarkable. The small bowel loops are nondilated. Mild wall thickening involving the rectum is present. There is also wall thickening involving the transverse colon. This may be a basis of incomplete distention. No free fluid or loculated fluid collection is evident. There is no free air. Nodes and vessels: No retroperitoneal or mesenteric adenopathy. Aorta and inferior vena cava are normal in caliber. An endovascular stent is identified involving the left common iliac vein, which is new since the prior study. Bones: No acute fracture or suspicious osseous lesion is identified. PELVIS: Genitourinary: Bladder wall thickness is normal. The uterus has been removed in the interim. However, there is marked thickening of the wall of the vagina. Miscellaneous: No inguinal hernias or adenopathy. No free fluid or loculated fluid collection is evident. There is no free air. Bones: No suspicious bony lesions. No acute pelvic fractures are evident. Mild degenerative changes of the hips and sacroiliac joints appear present. There is partial fusion of the right L5 transverse process with the adjacent sacral ala, which may be a source for pain. IMPRESSION: 1. Patchy wall thickening involving the transverse colon and the rectosigmoid colon is nonspecific and may be related to incomplete distention. However, please correlate clinically to exclude the possibility of colitis. Given the patient's history, colonoscopy would be helpful for better evaluation. 2. Marked thickening of the wall of the vagina may represent an infectious or inflammatory process after hysterectomy. 3. No bowel obstruction. 4. No loculated or drainable fluid collections. 5. Indeterminate left adrenal nodule is unchanged. Please consider MRI for further evaluation. 6. Left common iliac vein stent. Dictated by: Doron Steward M.D. on 03/28/2019 at 7:29 Approved by: Doron Steward M.D. on 03/28/2019 at 7:38
[2019-03-28] MEDS: KETOROLAC 60 MG/2 ML VIAL 30 MG IV (00:35)
[2019-03-28] MEDS: SODIUM CHLORIDE 0.9% 1,000 ML 1000 ML IV (00:35)
[2019-03-28 00:45] VITALS: BP 113/81; PULSE 75; RESP 18; O2SAT 100
[2019-03-28 00:50] LABS: Add Manual Diff / Slide Review SLIDE REVIEW; Basophils Absolute Auto 100 /uL (0-100); Basophils Percent Auto 0.6 % (0-2); Eosinophils Absolute Auto 200 /uL (0-450); Eosinophils Percent Auto 2.1 % (2-4); Hematocrit 37.4 % (36-46); Hemoglobin 12.7 g/dL (12.0-16.0); Lymphocytes Absolute Auto 4600 /uL (1100-4500); Lymphocytes Percent Auto 45.4 % (25-40); Mean Corpuscular HGB Conc 33.9 % (30-36); Mean Corpuscular Hemoglobin 27.5 PG (26-34); Mean Corpuscular Volume 81.2 fL (80-100); Monocytes Absolute Auto 1100 /uL (0-900); Neutrophils Absolute Auto 4200 /uL (1500-7000); Neutrophils Percent Auto 40.9 % (50-75); Platelet Count 325 X10^3/uL (150-400); Red Blood Cell Count 4.61 X10^6/uL (4.0-5.2); White Blood Cell Count 10.2 X10^3/uL (4.5-11.0)
[2019-03-28 00:53] LABS: Alanine Aminotransferase 18 IU/L (<35); Albumin 4.2 g/dL (3.5-5.0); Albumin Globulin Ratio 1.2 (1.0-2.8); Alkaline Phosphatase 42 U/L (38-126); Aspartate Aminotransferase 22 IU/L (14-36); BUN Creatinine Ratio 18.6 (6-22); Bilirubin Total 0.5 mg/dL (0.2-1.3); Blood Urea Nitrogen 13 mg/dL (7-17); Calcium 9.6 mg/dL (8.4-10.2); Carbon Dioxide 27 mmol/L (22-32); Chloride 102 mmol/L (98-107); Estimated Glomerular Filt Rate > 60.0 mL/min (>60); Globulin 3.5 g/dL (1.7-4.1); Glucose 134 mg/dL (70-100); HEMOLYSIS < 15 (0-50); Lipase 232 U/L (23-300); Potassium 3.9 mmol/L (3.4-5.1); Sodium 137 mmol/L (137-145); Total Protein 7.7 g/dL (6.3-8.2)
[2019-03-28 01:11] LABS: RBC Morphology Normal Morphology
[2019-03-28 01:24] VITALS: BP 104/67; PULSE 82; RESP 17; O2SAT 99
[2019-03-28 01:51] VITALS: BP 105/58; PULSE 90; RESP 15; O2SAT 98
[2019-03-28 02:30] VITALS: BP 110/72; PULSE 70; O2SAT 97
[2019-03-28] MEDS: metroNIDAZOLE 250 MG TABLET 500 MG PO (02:36)
[2019-03-28] MEDS: CIPROFLOXACIN 500 MG TABLET PO (02:36)
== END 2019-03-28 02:57 | disposition home or self-care (01) ==
PROVIDERS: Emergency Provider Emergency Medicine
DX: K62.89 Other specified diseases of anus and rectum (principal); K92.1 Melena; E11.9 Type 2 diabetes mellitus without complications; R19.7 Diarrhea, unspecified; Z79.01 Long term (current) use of anticoagulants
CPT/HCPCS: 36415; 74177; 80053; 81003; 83690; 85025; 96361; 96374; 99283; 99285; J1885; Q9967

== ENCOUNTER 2022-10-28 19:07 | Emergency (ER) | payer SELFPAY ==
[2022-10-28] VITALS (8 sets, daily range): BP systolic 115–167; BP diastolic 60–78; PULSE 66–79; RESP 16–23; TEMP 36.2; O2SAT 93–100; BMI 32.0
--- NOTE | 2022-10-28 20:08 | ED.NECK ---
HPI - Neck Pain/Injury General Chief Complaint: Neck Pain/Injury Stated Complaint: Shoulder/neck/chest pain, Knee pain Time Seen by Provider: 10/28/22 19:39 Source: patient Mode of arrival: Ambulatory Limitations: no limitations History of Present Illness HPI Narrative: Patient is a 46-year-old female. She has had a history of a lower extremity DVT. She was on anticoagulation for approximately 1 year but then was stopped about 1 year ago. She is here for evaluation of left-sided shoulder discomfort. She also states she is left upper arm discomfort. There was no specific injury that caused it. It does radiate to the left side of her chest. It is worse with palpation and movement. There no skin changes over the area. She also has discomfort to her left knee. Again no specific trauma to this area. She is have pain behind the knee. She is no swelling in her lower extremity. Has not tried anything for the symptoms prior to arrival. Related Data Home Medications Medication Instructions Recorded Confirmed acetaminophen 325 mg tablet 2 tab PO Q4HR PRN Pain, Mild ##0 10/02/09 12/27/18 apixaban 5 mg (74 tabs) tablets in 1 tab PO BID 12/27/18 12/27/18 a dose pack ferrous sulfate 325 mg (65 mg 1 tab PO DAILY 12/27/18 12/27/18 iron) tablet metformin 850 mg tablet 1 tab PO BID 12/27/18 12/27/18 Previous Rx's Medication Instructions Recorded medroxyprogesterone 10 mg tablet 20 mg PO DAILY #74 tabs 12/27/18 (Provera) ciprofloxacin HCl 500 mg tablet 500 mg PO BID #20 tabs 03/28/19 metronidazole 500 mg tablet 500 mg PO TID #30 tabs 03/28/19 (Flagyl) Allergies Allergy/AdvReac Type Severity Reaction Status Date / Time No Known Drug Allergies Allergy Verified 12/02/18 07:08 Review of Systems Constitutional Constitutional: Reports system reviewed and no additional complaints, except as documented Cardiovascular Cardiovascular: Reports system reviewed and no additional complaints, except as documented Respiratory Respiratory: Reports system reviewed and no additional complaints, except as documented Musculoskeletal Musculoskeletal: Reports system reviewed and no additional complaints, except as documented Integumentary/Breasts Skin/Breast: Reports system reviewed and no additional complaints, except as documented Neurologic Neurologic: Reports system reviewed and no additional complaints, except as documented Patient History Medical History Diabetes Fibroid uterus Left leg DVT Lesion of adrenal gland Surgical History (Updated 03/28/19 @ 00:30 by Cathleen Samuel DO) H/O: hysterectomy History of section, classical No pertinent past surgical history Social History Smoking Status: Never smoker Smoking Status: Never smoker alcohol intake frequency: 0-2 drinks per day Substance Use Type: does not use Exam Initial Vital Signs Initial Vital Signs: Vital Signs Temperature 97.1 F L 10/28/22 19:15 Pulse Rate 71 10/28/22 19:15 Respiratory Rate 18 10/28/22 19:15 Blood Pressure 167/78 H 10/28/22 19:15 Pulse Oximetry 100 10/28/22 19:15 Oxygen Delivery Method Room Air 10/28/22 19:15 Resp Effort & Inspection: normal respiratory effort Auscultation: clear to auscultation bilaterally Cardio Rate: regular rate Rhythm: regular rhythm Skin General: no rashes or lesions noted Neuro General: patient alert, patient awake and moves all extremities Extrem General: capillary refill normal Other: Patient has discomfort with palpation to the medial portion of her left knee. She is able to flex and extend but has discomfort in this area. She is able to ambulate. She also has discomfort with palpation of the medial aspect of her left upper arm. Also has discomfort with palpation of her entire shoulder. Limited range of motion because of the discomfort. Course Orders Ordered: ED Orders 10/28/22 19:20 EKG-12 Lead Stat 10/28/22 20:10 US periph venous low extrem lt Stat US periph venous up extrem lt Stat 10/28/22 20:17 Basic Metabolic Panel Stat Complete Blood Count AUTO DIFF Stat Troponin & CK Cardiac Panel Stat Discontinued Medications Hydrocodone Bitart/Acetaminophen (Hydrocodone/Acet 5/325 Tablet) 1 tab PO NOW ONE Stop: 10/28/22 21:16 Last Admin: 10/28/22 21:52 Dose: 1 tab Documented By: Hydrocodone Bitart/Acetaminophen (Hydrocodone/Acet 5/325 Prepack) 1 bottle MISC SEEINSTR ONE Stop: 10/28/22 22:41 Vital Signs Vital signs: Vital Signs - 8 hr 10/28/22 19:15 Temperature 97.1 F L Pulse Rate 71 Respiratory Rate 18 Blood Pressure 167/78 H Pulse Oximetry 100 Oxygen Delivery Method Room Air MDM - Neck Pain/Injury Lab Data Attestation: I reviewed the patient's lab results. 10/28/22 20:17 10/28/22 20:17 Labs: Lab Results 10/28/22 10/28/22 Range/Units 20:17 20:17 WBC 10.0 (4.5-11.0) X10^3/uL RBC 4.38 (4.0-5.2) X10^6/uL Hgb 13.6 (12.0-16.0) g/dL Hct 39.5 (36-46) % MCV 90.2 (80-100) fL MCH 31.0 (26-34) PG MCHC 34.4 (30-36) % RDW 12.5 (11.6-14.8) % Plt Count 289 (150-400) X10^3/uL Neut % (Auto) 50.1 (50-75) % Lymph % (Auto) 38.6 (25-40) % [place] % (Auto) 8.1 (3-14) % Eos % (Auto) 2.3 (2-4) % Baso % (Auto) 0.9 (0-2) % Neut # (Auto) 5000 (6752-4051) /uL Lymph # (Auto) 3900 (1746-1698) /uL [place] # (Auto) 800 (0-900) /uL Eos # (Auto) 200 (0-450) /uL Baso # (Auto) 100 (0-100) /uL Sodium 138 (137-145) mmol/L Potassium 3.8 (3.4-5.1) mmol/L Chloride 104 (98-107) mmol/L Carbon Dioxide 26 (22-32) mmol/L BUN 10 (7-17) mg/dL Creatinine 0.56 (0.52-1.04) mg/dL Estimated GFR > 60 (>60) mL/min BUN/Creatinine Ratio 17.9 (6-22) Glucose 118 H (70-100) mg/dL Calcium 9.2 (8.4-10.2) mg/dL Total Creatine Kinase 133 (30-135) U/L CK-MB (CK-2) TNP CK-MB (CK-2) Rel Index TNP Troponin I < 0.012 (0.01-0.034) ng/mL Imaging Data US - DVT: Radiologist's Impression: PROCEDURE:? [facility] VENOUS UP EXTREM LT ? INDICATIONS:? PAIN. HISTORY OF LOWER EXTREMITY DEEP VEIN THROMBOSIS. ? TECHNIQUE:? Real-time imaging, as well as color and pulse Doppler interrogation, was performed of the left upper extremity deep veins from the inferior neck to the antecubital fossa.? ? COMPARISON:? None. ? FINDINGS:? The internal jugular vein, visualized portions of the subclavian vein, axillary, and brachial veins are free of intraluminal thrombus.? Where physically possible, the veins are normally compressible.? Color and pulse Doppler demonstrate normal intraluminal flow, with expected phasicity and pulsatility.? Additional scanning of the cephalic and basilic veins of the superficial system demonstrate normal compressibility, without thrombus.? ? IMPRESSION:? ? 1. No evidence of deep venous thrombosis in the left upper extremity. US DVT 2: Radiologist's Impression: P bari ROCEDURE:? [facility] VENOUS LOW EXTREM LT ? INDICATIONS:? KNEE PAIN. HISTORY OF DEEP VEIN THROMBOSIS (GSV) ? TECHNIQUE:? Real-time imaging, as well as color and pulse Doppler interrogation, were performed of the lower extremity deep veins from the inguinal ligament to the popliteal fossa.? ? COMPARISON:? Merged with [facility], [facility] VENOUS LOW EXTREM LT, 12/27/2018, 6:51. ? FINDINGS:? The common femoral, femoral and popliteal veins are normally compressible, and free of intraluminal thrombus.? Color and pulse Doppler demonstrate normal phasic intraluminal flow.? There is normal augmentation response to distal compression maneuver. ? ? There is a nonspecific fluid collection noted along the medial knee. ? IMPRESSION:? ? 1.? No evidence of deep venous thrombosis in the left lower extremity. ECG Data Attestation: I personally reviewed and interpreted this ECG as follows: Interpretation: Sinus rhythm Ventricular rate is 67 Normal axis Normal QRS Normal QTC No ST T wave changes MDM Narrative Medical decision making narrative: Ultrasound shows no signs of DVT. I have low suspicion for septic joint. Low suspicion for gout. No indication for x-rays as I have low suspicion for fracture/dislocation. She denies any fevers. I have low suspicion for ACS based on her presentation today. I do suspect that this is arthritis. We did discuss conservative measures. Will discharge patient home with return precautions. She expressed understanding and agreement. Discharge Plan Departure Patient Disposition: Home Clinical Impression: Left shoulder pain, Knee pain, left Instructions: How To Perform RICE (Rest, Ice, Compress, Elevate) Activity Restrictions/Additional Instructions: Your only restricted in your activity secondary to your discomfort however over the next couple days I do recommend that you limit the amount that you were lifting. You can take Tylenol/ibuprofen for discomfort. I also recommend ice. Contact your primary doctor for a follow-up. Prescriptions: No Action acetaminophen 325 MG tablet 2 tab PO Q4HR PRN (Reason: Pain, Mild) Qty: 0 metformin 850 mg tablet 1 tab PO BID Patient Comments: TK 1 T PO BID ferrous sulfate 325 mg (65 mg iron) tablet 1 tab PO DAILY Patient Comments: TAKE 1 TABLET BY MOUTH 2 TIMES A DAY WITH BREAKFAST AND DINNER. Eliquis 5 mg (74 tabs) tablets,dose pack 1 tab PO BID Patient Comments: TAKE 2 TABLETS BY MOUTH 2 TIMES DAILY FOR 7 DAYS THEN TAKE 1 TABLET BYMOUTH TWICE DAILY UNTIL DIRECTED BY medroxyprogesterone [Provera] 10 mg tablet 20 mg PO DAILY Qty: 74 0RF Rx Instructions: Take 20 mg every 2 hours until bleeding stops. Then take 2 tablets every 4 hours for 48 hours. Then take 2 tablets every 6 hours for 48 hours. Then take 2 tablets every 8 hours for 48 hours. Then take 2 tablets every 12 hours for 48 hours. Then take 2 tablets every day for 7 days. metronidazole [Flagyl] 500 mg tablet 500 mg PO TID Qty: 30 0RF ciprofloxacin HCl 500 mg tablet 500 mg PO BID Qty: 20 0RF Stand Alone Forms: Patient Portal/API, Work Release Note
--- NOTE | 2022-10-28 20:10 | DI.US.S_ITS ---
P a ROCEDURE: US [facility] VENOUS LOW EXTREM LT INDICATIONS: KNEE PAIN. HISTORY OF DEEP VEIN THROMBOSIS (GSV) TECHNIQUE: Real-time imaging, as well as color and pulse Doppler interrogation, were performed of the lower extremity deep veins from the inguinal ligament to the popliteal fossa. COMPARISON: [facility], , [facility] VENOUS LOW EXTREM LT, 12/27/2018, 6:51. FINDINGS: The common femoral, femoral and popliteal veins are normally compressible, and free of intraluminal thrombus. Color and pulse Doppler demonstrate normal phasic intraluminal flow. There is normal augmentation response to distal compression maneuver. There is a nonspecific fluid collection noted along the medial knee. IMPRESSION: 1. No evidence of deep venous thrombosis in the left lower extremity. Dictated by: Malcolm Alberts M.D. on 10/28/2022 at 21:58 Approved by: Malcolm Alberts M.D. on 10/28/2022 at 22:03
--- NOTE | 2022-10-28 20:10 | DI.US.S_ITS ---
PROCEDURE: US [facility] VENOUS UP EXTREM LT INDICATIONS: PAIN. HISTORY OF LOWER EXTREMITY DEEP VEIN THROMBOSIS. TECHNIQUE: Real-time imaging, as well as color and pulse Doppler interrogation, was performed of the left upper extremity deep veins from the inferior neck to the antecubital fossa. COMPARISON: None. FINDINGS: The internal jugular vein, visualized portions of the subclavian vein, axillary, and brachial veins are free of intraluminal thrombus. Where physically possible, the veins are normally compressible. Color and pulse Doppler demonstrate normal intraluminal flow, with expected phasicity and pulsatility. Additional scanning of the cephalic and basilic veins of the superficial system demonstrate normal compressibility, without thrombus. IMPRESSION: 1. No evidence of deep venous thrombosis in the left upper extremity. Dictated by: Malcolm Alberts M.D. on 10/28/2022 at 22:03 Approved by: Malcolm Alberts M.D. on 10/28/2022 at 22:08
[2022-10-28 20:31] LABS: Add Manual Diff / Slide Review NO; Basophils Absolute Auto 100 /uL (0-100); Basophils Percent Auto 0.9 % (0-2); Eosinophils Absolute Auto 200 /uL (0-450); Eosinophils Percent Auto 2.3 % (2-4); Hematocrit 39.5 % (36-46); Hemoglobin 13.6 g/dL (12.0-16.0); Lymphocytes Absolute Auto 3900 /uL (1100-4500); Lymphocytes Percent Auto 38.6 % (25-40); Mean Corpuscular HGB Conc 34.4 % (30-36); Mean Corpuscular Volume 90.2 fL (80-100); Monocytes Absolute Auto 800 /uL (0-900); Monocytes Percent Auto 8.1 % (3-14); Neutrophils Absolute Auto 5000 /uL (1500-7000); Neutrophils Percent Auto 50.1 % (50-75); Platelet Count 289 X10^3/uL (150-400); Red Blood Cell Count 4.38 X10^6/uL (4.0-5.2); Red Cell Distribution Width 12.5 % (11.6-14.8)
[2022-10-28 20:42] LABS: BUN Creatinine Ratio 17.9 (6-22); Blood Urea Nitrogen 10 mg/dL (7-17); Calcium 9.2 mg/dL (8.4-10.2); Carbon Dioxide 26 mmol/L (22-32); Chloride 104 mmol/L (98-107); Creatine Kinase 133 U/L (30-135); Estimated Glomerular Filt Rate > 60 mL/min (>60); Glucose 118 mg/dL (70-100); HEMOLYSIS 18 (0-50); Potassium 3.8 mmol/L (3.4-5.1); Sodium 138 mmol/L (137-145)
[2022-10-28 20:54] LABS: Troponin I < 0.012 ng/mL (0.01-0.034)
[2022-10-28] MEDS: HYDROCODONE/ACET 5/325 TABLET 1 TAB PO (21:52)
[2022-10-28] MEDS: HYDROCODONE/ACET 5/325 PREPACK 1 BOTTLE MISC (22:48)
== END 2022-10-28 22:53 | disposition home or self-care (01) ==
PROVIDERS: Emergency Provider Emergency Medicine
DX: M25.512 Pain in left shoulder (principal); M25.562 Pain in left knee; R07.9 Chest pain, unspecified
CPT/HCPCS: 36415; 80048; 82550; 84484; 85025; 93005; 93971; 99283; 99284

== ENCOUNTER 2024-05-06 20:34 | Emergency (ER) | payer BC, SELFPAY ==
[2024-05-06 20:41] VITALS: BP 145/93; PULSE 84; RESP 18; TEMP 36.8; O2SAT 100; BMI 31.8
--- NOTE | 2024-05-06 20:44 | EKG_ITS ---
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
[2024-05-06] MEDS: ONDANSETRON 4 MG/2 ML INJ IV (20:53)
[2024-05-06 21:04] LABS: Add Manual Diff / Slide Review NO; Basophils Absolute Auto 100 /uL (0-100); Basophils Percent Auto 0.7 % (0-2); Eosinophils Absolute Auto 400 /uL (0-450); Hematocrit 38.9 % (36-46); Hemoglobin 13.1 g/dL (12.0-16.0); Lymphocytes Absolute Auto 5000 /uL (1100-4500); Lymphocytes Percent Auto 41.7 % (25-40); Mean Corpuscular HGB Conc 33.8 % (30-36); Mean Corpuscular Hemoglobin 30.5 PG (26-34); Mean Corpuscular Volume 90.4 fL (80-100); Monocytes Absolute Auto 1000 /uL (0-900); Monocytes Percent Auto 8.5 % (3-14); Neutrophils Absolute Auto 5600 /uL (1500-7000); Neutrophils Percent Auto 46.1 % (50-75); Platelet Count 334 X10^3/uL (150-400); Red Cell Distribution Width 12.5 % (11.6-14.8); White Blood Cell Count 12.1 X10^3/uL (4.5-11.0)
[2024-05-06] MEDS: PANTOPRAZOLE 40 MG VIAL IV (21:08)
[2024-05-06 21:15] LABS: Alanine Aminotransferase 31 IU/L (<35); Albumin 4.1 g/dL (3.5-5.0); Albumin Globulin Ratio 1.2 (1.0-2.8); Alkaline Phosphatase 41 U/L (38-126); Aspartate Aminotransferase 29 IU/L (14-36); Bilirubin Total 0.4 mg/dL (0.2-1.3); Blood Urea Nitrogen 17 mg/dL (7-17); Calcium 9.2 mg/dL (8.4-10.2); Carbon Dioxide 25 mmol/L (22-32); Chloride 106 mmol/L (98-107); Estimated Glomerular Filt Rate > 60 mL/min (>60); Globulin 3.4 g/dL (1.7-4.1); Glucose 163 mg/dL (70-100); HEMOLYSIS < 15 (0-50); Lipase 216 U/L (23-300); Sodium 135 mmol/L (137-145); Total Protein 7.5 g/dL (6.3-8.2)
[2024-05-06 21:25] LABS: Creatine Kinase 116 U/L (30-135)
[2024-05-06 21:38] LABS: Troponin I < 0.012 ng/mL (0.01-0.034)
--- NOTE | 2024-05-06 21:45 | ED.GENADULT ---
HPI - General Adult General Chief complaint: Abdominal Pain Stated complaint: abd pain. short of breath Time Seen by Provider: 05/06/24 21:09 Source: patient Mode of arrival: Ambulatory History of Present Illness HPI narrative: 48-year-old female who comes to the emergency department for evaluation of left upper quadrant abdominal pain and shortness of breath. She states that the symptoms were fairly sudden onset several hours prior to arrival here in the ER. Some nausea but no vomiting. No chest pain. Does describe burning sensation in the center of her chest that goes down into her abdomen. No change in bowel habits. No urinary symptoms. She has had a DVT in her left lower extremity but no history of pulmonary embolism. Denies any fevers. Has not tried anything for the symptoms prior to arrival. Related Data Home Medications Medication Instructions Recorded Confirmed acetaminophen 325 mg tablet 2 tab PO Q4HR PRN Pain, Mild ##0 10/02/09 12/27/18 apixaban 5 mg (74 tabs) tablets in 1 tab PO BID 12/27/18 12/27/18 a dose pack ferrous sulfate 325 mg (65 mg 1 tab PO DAILY 12/27/18 12/27/18 iron) tablet metformin 850 mg tablet 1 tab PO BID 12/27/18 12/27/18 Previous Rx's Medication Instructions Recorded medroxyprogesterone 10 mg tablet 20 mg (2 x 10 mg) PO DAILY #74 tabs 12/27/18 (Provera) ciprofloxacin HCl 500 mg tablet 500 mg PO BID #20 tabs 03/28/19 metronidazole 500 mg tablet 500 mg PO TID #30 tabs 03/28/19 (Flagyl) Allergies Allergy/AdvReac Type Severity Reaction Status Date / Time lisinopril Allergy Nausea Verified 05/06/24 20:48 Review of Systems Review of Systems ROS Unobtainable: All systems reviewed & are unremarkable except as noted in HPI and below Patient History Medical History Lesion of adrenal gland Left leg DVT Fibroid uterus Diabetes Surgical History (Updated 03/28/19 @ 00:30 by Cathleen Samuel DO) H/O: hysterectomy History of section, classical No pertinent past surgical history Social History Smoking Status: Never smoker Smoking Status: Never smoker alcohol intake frequency: 0-2 drinks per day Exam Initial Vital Signs Initial Vital Signs: Vital Signs Temperature 98.3 F 05/06/24 20:41 Pulse Rate 84 05/06/24 20:41 Respiratory Rate 18 05/06/24 20:41 Blood Pressure 145/93 H 05/06/24 20:41 Pulse Oximetry 100 05/06/24 20:41 Oxygen Delivery Method Room Air 05/06/24 20:41 Const General: cooperative, comfortable and No ill appearing [facility] Head: normal to inspection and normocephalic Resp Effort & Inspection: normal respiratory effort Auscultation: clear to auscultation bilaterally Cardio Rate: regular rate Rhythm: regular rhythm GI Inspection: normal to inspection and non-distended Palpation: soft, No firm, No guarding and tender (Left upper quadrant) Skin General: no rashes or lesions noted Neuro General: patient alert, patient awake and moves all extremities Course Orders Ordered: ED Orders 05/06/24 20:44 EKG-12 Lead Stat 05/06/24 20:50 Complete Blood Count AUTO DIFF Stat Comprehensive Metabolic Panel Stat D Dimer Stat Lipase Stat 05/06/24 21:09 Troponin & CK Cardiac Panel Stat 05/06/24 22:12 CT angio chest PE protocol Stat Discontinued Medications Al Hydrox/Mg Hydrox/Simethicone 20 ml/ Lidocaine HCl 15 ml 0 ml PO NOW ONE Stop: 05/06/24 23:47 Last Admin: 05/06/24 23:54 Dose: 35 ml Documented By: AYSHA Ketorolac Tromethamine (Ketorolac 30 Mg/Ml Vial) 15 mg IV NOW ONE Stop: 05/06/24 21:47 Last Admin: 05/06/24 22:02 Dose: 15 mg Documented By: AYSHA Morphine Sulfate (Morphine 4 Mg/Ml Inj) 4 mg IV NOW ONE Stop: 05/06/24 22:14 Last Admin: 05/06/24 23:54 Dose: Not Given Documented By: AYSHA Ondansetron HCl (Ondansetron 4 Mg/2 Ml Inj) 4 mg IV NOW PRN PRN Reason: Nausea And Vomiting Last Admin: 05/06/24 20:53 Dose: 4 mg Documented By: JAMES Ondansetron HCl (Ondansetron 4 Mg Odt) 4 mg PO NOW PRN PRN Reason: Nausea And Vomiting Pantoprazole Sodium (Pantoprazole 40 Mg Vial) 40 mg IV NOW ONE Stop: 05/06/24 21:01 Last Admin: 05/06/24 21:08 Dose: 40 mg Documented By: JAMES Vital Signs Vital signs: Vital Signs - 8 hr 05/06/24 22:02 05/06/24 22:02 05/06/24 22:30 Pulse Rate 90 84 Respiratory Rate 18 Blood Pressure 112/68 Pulse Oximetry 97 97 05/06/24 23:50 05/06/24 23:50 Pulse Rate 84 Respiratory Rate 18 Blood Pressure 102/67 Pulse Oximetry 97 Medical Decision Making Medical Records Medical records reviewed: Yes I reviewed the patient's medical records. Lab Data Lab results reviewed: Yes I reviewed the patient's lab results. 05/06/24 20:50 05/06/24 20:50 Labs: Lab Results 05/06/24 05/06/24 Range/Units 20:50 21:09 WBC 12.1 H (4.5-11.0) X10^3/uL RBC 4.30 (4.0-5.2) X10^6/uL Hgb 13.1 (12.0-16.0) g/dL Hct 38.9 (36-46) % MCV 90.4 (80-100) fL MCH 30.5 (26-34) PG MCHC 33.8 (30-36) % RDW 12.5 (11.6-14.8) % Plt Count 334 (150-400) X10^3/uL Neut % (Auto) 46.1 L (50-75) % Lymph % (Auto) 41.7 H (25-40) % [place] % (Auto) 8.5 (3-14) % Eos % (Auto) 3.0 (2-4) % Baso % (Auto) 0.7 (0-2) % Neut # (Auto) 5600 (2541-2574) /uL Lymph # (Auto) 5000 H (0565-0920) /uL [place] # (Auto) 1000 H (0-900) /uL Eos # (Auto) 400 (0-450) /uL Baso # (Auto) 100 (0-100) /uL D-Dimer 610 H (<500) ng/ml Sodium 135 L (137-145) mmol/L Potassium 4.0 (3.4-5.1) mmol/L Chloride 106 (98-107) mmol/L Carbon Dioxide 25 (22-32) mmol/L BUN 17 (7-17) mg/dL Creatinine 0.81 (0.52-1.04) mg/dL Estimated GFR > 60 (>60) mL/min BUN/Creatinine Ratio 21.0 (6-22) Glucose 163 H (70-100) mg/dL Calcium 9.2 (8.4-10.2) mg/dL Total Bilirubin 0.4 (0.2-1.3) mg/dL AST 29 (14-36) IU/L ALT 31 (<35) IU/L Alkaline Phosphatase 41 (38-126) U/L Total Creatine Kinase 116 (30-135) U/L Troponin I < 0.012 (0.01-0.034) ng/mL Total Protein 7.5 (6.3-8.2) g/dL Albumin 4.1 (3.5-5.0) g/dL Globulin 3.4 (1.7-4.1) g/dL Albumin/Globulin Ratio 1.2 (1.0-2.8) Lipase 216 (23-300) U/L Urine Dip Bedside Urine Glucose Negative Bedside Urine Bilirubin - Negative Bedside Urine Ketone - Negative Urine Specific [place] 1.01 Bedside Urine Occult Blood - Negative Bedside Urine pH 6 Bedside Urine Protein - Negative Bedside Urine Urobilinogen - Negative Bedside Urine Nitrite - Negative Bedside Urine Leukocytes - Negative Esterase Point of care testing: Urine Dip Bedside Urine Glucose Negative Bedside Urine Bilirubin - Negative Bedside Urine Ketone - Negative Urine Specific [place] 1.01 Bedside Urine Occult Blood - Negative Bedside Urine pH 6 Bedside Urine Protein - Negative Bedside Urine Urobilinogen - Negative Bedside Urine Nitrite - Negative Bedside Urine Leukocytes - Negative Esterase Imaging Data CT scan - chest: Radiologist's Impression: PROCEDURE: CT ANGIO CHEST PE PROTOCOL INDICATIONS: Chest pain, shortness of breath, tachycardia TECHNIQUE: After the administration of intravenous contrast, 2 mm thick sections acquired from the pulmonary apices to the posterior costophrenic angles. 3-dimensional maximum intensity projection (MIP) coronal and sagittal reformats were then acquired through the thorax. For radiation dose reduction, the following was used: automated exposure control, adjustment of mA and/or kV according to patient size. COMPARISON: None. FINDINGS: Image quality: Diagnostic. Pulmonary arteries: Pulmonary arteries are normal in size, and demonstrate no intraluminal filling defects to suggest central pulmonary embolism. Lower Neck: No enlarged lymph nodes. Thyroid: No thyroid nodules which require sonographic follow up, per consensus guidelines. Axillae: No enlarged lymph nodes. Chest Wall: Unremarkable. Bones: Unremarkable. Lungs and Pleura: No pneumothorax or pleural effusions. No consolidation or suspicious nodules. Heart: Heart size is normal. No pericardial effusion. Thoracic Vessels: No aortic aneurysm. Mediastinum and [place]: No enlarged lymph nodes. Esophagus: No wall thickening. Mild hiatal hernia. Upper Abdomen: Visualized upper abdomen solid organs and bowel loops appear normal. IMPRESSION: No pulmonary embolus. No acute cardiopulmonary process. ECG Data Attestation: I personally reviewed and interpreted this ECG as follows: Interpretation: Sinus rhythm Normal axis Normal QRS Artifact noted in V3 No ST T wave changes MDM Narrative Medical decision making narrative: Patient was afebrile. EKG is unremarkable. Lipase is unremarkable. No skin changes over the area concerning for zoster. She was is a history of DVT. Not on anticoagulation. No history of PE. Given the sudden onset of the symptoms D-dimer was ordered it was elevated. Subsequent PE study was negative. No signs of pneumonia. She has a unremarkable abdominal exam other than discomfort of the left upper quadrant. She has a history of gastritis in the past. Family somewhat concerned that that is what is going on once again. Some improvement of symptoms after medications here in the ER. I have low suspicion for ACS. Will have the patient start on a reflux medication. We discussed bland diet. Discussed return precautions and follow-up instructions. They expressed understanding and agreement with plan. Discharge Plan Departure Patient Disposition: Home Clinical Impression: Abdominal pain Instructions: DI for Abdominal Pain-Adult Activity Restrictions/Additional Instructions: Continue to take all of your medications as directed. Contact your primary care doctor for a follow-up. Return to the emergency department for new or worsening symptoms. Prescriptions: No Action acetaminophen 325 MG tablet 2 tab PO Q4HR PRN (Reason: Pain, Mild) Qty: 0 metformin 850 mg tablet 1 tab PO BID Patient Comments: TK 1 T PO BID ferrous sulfate 325 mg (65 mg iron) tablet 1 tab PO DAILY Patient Comments: TAKE 1 TABLET BY MOUTH 2 TIMES A DAY WITH BREAKFAST AND DINNER. Eliquis 5 mg (74 tabs) tablets,dose pack 1 tab PO BID Patient Comments: TAKE 2 TABLETS BY MOUTH 2 TIMES DAILY FOR 7 DAYS THEN TAKE 1 TABLET BYMOUTH TWICE DAILY UNTIL DIRECTED BY medroxyprogesterone [Provera] 10 mg tablet 20 mg PO DAILY Qty: 74 0RF Rx Instructions: Take 20 mg every 2 hours until bleeding stops. Then take 2 tablets every 4 hours for 48 hours. Then take 2 tablets every 6 hours for 48 hours. Then take 2 tablets every 8 hours for 48 hours. Then take 2 tablets every 12 hours for 48 hours. Then take 2 tablets every day for 7 days. metronidazole [Flagyl] 500 mg tablet 500 mg PO TID Qty: 30 0RF ciprofloxacin HCl 500 mg tablet 500 mg PO BID Qty: 20 0RF Stand Alone Forms: Patient Portal/API/Survey
[2024-05-06 22:02] VITALS: BP 112/68; PULSE 90; O2SAT 97
[2024-05-06 22:02] LABS: D Dimer 610 ng/ml (<500)
[2024-05-06] MEDS: KETOROLAC 30 MG/ML VIAL 15 MG IV (22:02)
--- NOTE | 2024-05-06 22:12 | DI.CT.S_ITS ---
PROCEDURE: CT ANGIO CHEST PE PROTOCOL INDICATIONS: Chest pain, shortness of breath, tachycardia TECHNIQUE: After the administration of intravenous contrast, 2 mm thick sections acquired from the pulmonary apices to the posterior costophrenic angles. 3-dimensional maximum intensity projection (MIP) coronal and sagittal reformats were then acquired through the thorax. For radiation dose reduction, the following was used: automated exposure control, adjustment of mA and/or kV according to patient size. COMPARISON: None. FINDINGS: Image quality: Diagnostic. Pulmonary arteries: Pulmonary arteries are normal in size, and demonstrate no intraluminal filling defects to suggest central pulmonary embolism. Lower Neck: No enlarged lymph nodes. Thyroid: No thyroid nodules which require sonographic follow up, per consensus guidelines. Axillae: No enlarged lymph nodes. Chest Wall: Unremarkable. Bones: Unremarkable. Lungs and Pleura: No pneumothorax or pleural effusions. No consolidation or suspicious nodules. Heart: Heart size is normal. No pericardial effusion. Thoracic Vessels: No aortic aneurysm. Mediastinum and [place]: No enlarged lymph nodes. Esophagus: No wall thickening. Mild hiatal hernia. Upper Abdomen: Visualized upper abdomen solid organs and bowel loops appear normal. IMPRESSION: No pulmonary embolus. No acute cardiopulmonary process. Dictated by: Courtney Stone M.D. on 05/06/2024 at 22:42 Approved by: Courtney Stone M.D. on 05/06/2024 at 22:43
[2024-05-06 22:30] VITALS: PULSE 84; RESP 18; O2SAT 97
[2024-05-06 23:50] VITALS: BP 102/67; PULSE 84; RESP 18; O2SAT 97
[2024-05-06] MEDS: MAG HYDROX/ALUMINUM/SIMETH SUS 20 ML, LIDOCAINE VISCOUS 2% 15 ML PO (23:54)
== END 2024-05-07 00:04 | disposition home or self-care (01) ==
PROVIDERS: Emergency Provider Emergency Medicine
DX: R10.12 Left upper quadrant pain (principal); R06.02 Shortness of breath; R07.9 Chest pain, unspecified; Z86.718 Personal history of other venous thrombosis and embolism
CPT/HCPCS: 36415; 71275; 80053; 81003; 82550; 83690; 84484; 85025; 85379; 93005; 96374; 96375; 99284; J1885; J2405; J2470; Q9967

== ENCOUNTER 2024-09-26 19:59 | Emergency (ER) | payer OTHER, BC, SELFPAY ==
[2024-09-26 20:07] VITALS: BP 137/93; PULSE 85; RESP 17; TEMP 36.1; O2SAT 98; BMI 31.1
--- NOTE | 2024-09-26 20:09 | DI.RAD.S_ITS ---
PROCEDURE: XR KNEE LT 3V INDICATIONS: pain without known injury TECHNIQUE: 3 views of the knee were acquired. COMPARISON: None. FINDINGS: Bones: No fractures or dislocations. No suspicious bony lesions. Soft tissues: No joint effusion. No suspicious soft tissue calcifications. IMPRESSION: No acute bony abnormality or significant effusion. Dictated by: Alejandro New M.D. on 09/26/2024 at 20:31 Approved by: Alejandro New M.D. on 09/26/2024 at 20:32
--- NOTE | 2024-09-26 20:55 | ED_ITS ---
HPI - Extremity Injury (Lower) General Chief Complaint: Extremity Injury, Lower Stated Complaint: LT leg pain 3 days, past blood clots Time Seen by Provider: 09/26/24 20:55 Source: patient Mode of arrival: Ambulatory History of Present Illness HPI Narrative: Patient is 48-year-old female history of diabetes hypertension hyperlipidemia prior DVT in 2019 thought to be due to possible uterine cancer she was since had a hysterectomy no longer on anticoagulation presenting today with left leg pain. She reports that for the last 3 days she has had burning sensation in her left lateral thigh. Denies any kind injury. Denies hip pain or back pain. No change in bowel or bladder habits. Has some mild knee pain as well no significant swelling. She was previously taking meloxicam for pain but ran out. Related Data Home Medications Medication Instructions Recorded Confirmed acetaminophen 325 mg tablet 2 tab PO Q4HR PRN Pain, Mild ##0 10/02/09 12/27/18 apixaban 5 mg (74 tabs) tablets in 1 tab PO BID 12/27/18 12/27/18 a dose pack ferrous sulfate 325 mg (65 mg 1 tab PO DAILY 12/27/18 12/27/18 iron) tablet metformin 850 mg tablet 1 tab PO BID 12/27/18 12/27/18 Previous Rx's Medication Instructions Recorded medroxyprogesterone 10 mg tablet 20 mg (2 x 10 mg) PO DAILY #74 tabs 12/27/18 (Provera) ciprofloxacin HCl 500 mg tablet 500 mg PO BID #20 tabs 03/28/19 metronidazole 500 mg tablet 500 mg PO TID #30 tabs 03/28/19 (Flagyl) hydrocodone 5 mg-acetaminophen 325 1 tab PO Q6H PRN pain #10 tabs 09/26/24 mg tablet meloxicam 15 mg tablet 15 mg PO DAILY PRN pain #20 tabs 09/26/24 Allergies Allergy/AdvReac Type Severity Reaction Status Date / Time lisinopril AdvReac Nausea Verified 09/26/24 20:07 Patient History Medical History Lesion of adrenal gland Left leg DVT Fibroid uterus Diabetes Surgical History (Updated 03/28/19 @ 00:30 by Cathleen Samuel DO) H/O: hysterectomy History of section, classical No pertinent past surgical history Social History Smoking Status: Never smoker Smoking Status: Never smoker alcohol intake frequency: 0-2 drinks per day Exam Initial Vital Signs Initial Vital Signs: Vital Signs Temperature 97.0 F L 09/26/24 20:07 Pulse Rate 85 09/26/24 20:07 Respiratory Rate 17 09/26/24 20:07 Blood Pressure 137/93 H 09/26/24 20:07 Pulse Oximetry 98 09/26/24 20:07 Oxygen Delivery Method Room Air 09/26/24 20:07 GENERAL: Alert well-appearing 48-year-old female and in no acute distress. HEENT: Head atraumatic,EOMI, pupils reactive, face symmetric, moist mucous membranes CARDIOVASCULAR: Regular rate and rhythm without murmurs, rubs or gallops. RESPIRATORY: Breath sounds equal bilaterally, no wheezes rales or rhonchi. EXTREMITIES: Normal range of motion, no clubbing or edema. Neurovascularly intact Left lower extremity no significant swelling knee is stable pain laterally burning sensation sensation in medial thighs intact NEUROLOGICAL: Alert and oriented x4.Normal gait and speech. Cranial nerves II through XII grossly intact. BACK: No significant vertebral tenderness or step-off SKIN: Warm, dry, no laceration, no petechiae, no rashes or lesions. Course Orders Ordered: ED Orders 09/26/24 20:09 XR knee LT 3V Stat Discontinued Medications Hydrocodone Bitart/Acetaminophen (Hydrocodone/Acet 5/325 Prepack) 1 bottle MISC DIRECTED ONE Stop: 09/26/24 21:12 Last Admin: 09/26/24 21:27 Dose: 1 bottle Documented By: PAYTON Ketorolac Tromethamine (Ketorolac 30 Mg/Ml Vial) 30 mg IM NOW ONE Stop: 09/26/24 21:12 Last Admin: 09/26/24 21:27 Dose: 30 mg Documented By: PAYTON Vital Signs Vital signs: Vital Signs - 8 hr 09/26/24 20:07 09/26/24 21:49 Temperature 97.0 F L Pulse Rate 85 77 Respiratory Rate 17 18 Blood Pressure 137/93 H 137/93 H Pulse Oximetry 98 99 Oxygen Delivery Method Room Air Room Air Oxygen Flow Rate 0 MDM - Extremity Injury (Lower) Imaging Data Extremity x-ray #1: Radiologist's Impression: PROCEDURE: XR KNEE LT 3V INDICATIONS: pain without known injury TECHNIQUE: 3 views of the knee were acquired. COMPARISON: None. FINDINGS: Bones: No fractures or dislocations. No suspicious bony lesions. Soft tissues: No joint effusion. No suspicious soft tissue calcifications. IMPRESSION: No acute bony abnormality or significant effusion. Dictated by: Alejandro New M.D. on 09/26/2024 at 20:31 MDM Narrative Medical decision making narrative: Patient 48-year-old female history of diabetes prior DVT presenting today with burning pain in left leg. No significant injury. No back injury or knee inj ury. It has been ongoing for the last 3 days. Does not clinically sound or present like a DVT. Pain seems more like a neuropathy with burning on lateral thigh. No significant hip or back pain. Knee is stable x-ray has been reviewed and negative. No concern for cauda equina. Given Toradol here in the ED on with prepack of [place]. Discharge Plan Departure Patient Disposition: Home Clinical Impression: Sciatica Instructions: DI for Sciatica Activity Restrictions/Additional Instructions: *You have been diagnosed with sciatica/neuropathy *What to do: At this time try heating pad or ice pad increase activity as tolerated *Continue to take medications as directed--> safeway Meloxicam 15 mg daily as needed [place] 1 tablet at night if needed for severe pain *Follow up with your primary care provider in 2-3 days or call [phone] *Return to ER if you should have increasing pain numbness tingling weakness or any new, worsening or concerning symptoms CONTROLLED SUBSTANCE DISCHARGE (Narcotoic/benzodiazepine/Flexeril/Phenergan) 1. You have been prescribed narcotic medications, it does have acetaminophen/Tylenol/paracetamol in it, DO NOT TAKE MORE THAN 4,00mg in 24 hours of Tylenol. TRAMADOL DOES NOT CONTAIN TYLENOL 2. Please understand that we cannot provide further refills of narcotics, benzodiazepines or controlled substances through the ED and her pain management will need to be through your provider. 3. While on these medications you cannot drive or operate heavy machinery. 4. You cannot sign legal documents or perform any duties such as this. 5. As long as you're taking opiate pain medications he should also be taking a stool softener such as Colace, Dulcolax, MiraLAX or prune juice, to help avoid constipation. Prescriptions: New meloxicam 15 mg tablet 15 mg PO DAILY PRN (Reason: pain) Qty: 20 0RF hydrocodone-acetaminophen 5-325 mg tablet 1 tab PO Q6H PRN (Reason: pain) Qty: 10 0RF No Action acetaminophen 325 MG tablet 2 tab PO Q4HR PRN (Reason: Pain, Mild) Qty: 0 metformin 850 mg tablet 1 tab PO BID Patient Comments: TK 1 T PO BID ferrous sulfate 325 mg (65 mg iron) tablet 1 tab PO DAILY Patient Comments: TAKE 1 TABLET BY MOUTH 2 TIMES A DAY WITH BREAKFAST AND DINNER. Eliquis 5 mg (74 tabs) tablets,dose pack 1 tab PO BID Patient Comments: TAKE 2 TABLETS BY MOUTH 2 TIMES DAILY FOR 7 DAYS THEN TAKE 1 TABLET BYMOUTH TWICE DAILY UNTIL DIRECTED BY medroxyprogesterone [Provera] 10 mg tablet 20 mg PO DAILY Qty: 74 0RF Rx Instructions: Take 20 mg every 2 hours until bleeding stops. Then take 2 tablets every 4 hours for 48 hours. Then take 2 tablets every 6 hours for 48 hours. Then take 2 tablets every 8 hours for 48 hours. Then take 2 tablets every 12 hours for 48 hours. Then take 2 tablets every day for 7 days. metronidazole [Flagyl] 500 mg tablet 500 mg PO TID Qty: 30 0RF ciprofloxacin HCl 500 mg tablet 500 mg PO BID Qty: 20 0RF Stand Alone Forms: Patient Portal/API/Survey
[2024-09-26] MEDS: HYDROCODONE/ACET 5/325 PREPACK 1 BOTTLE MISC (21:27)
[2024-09-26] MEDS: KETOROLAC 30 MG/ML VIAL IM (21:27)
[2024-09-26 21:49] VITALS: BP 137/93; PULSE 77; RESP 18; O2SAT 99
== END 2024-09-26 21:50 | disposition home or self-care (01) ==
PROVIDERS: Emergency Provider Emergency Medicine
DX: M54.32 Sciatica, left side (principal)
CPT/HCPCS: 73562; 90471; 96372; 99283; J1885

== ENCOUNTER 2025-01-15 20:31 | Emergency (ER) | payer OTHER, SELFPAY ==
[2025-01-15] VITALS (8 sets, daily range): BP systolic 109–124; BP diastolic 66–77; PULSE 67–77; RESP 15–21; TEMP 36.3; O2SAT 91–100; BMI 30.9
--- NOTE | 2025-01-15 21:13 | DI.RAD.S_ITS ---
PROCEDURE: XR CHEST 1V INDICATIONS: Chest Pain TECHNIQUE: One view of the chest was acquired. COMPARISON: [facility], , CHEST 2 VIEW, 06/27/2014, 21:32. FINDINGS: Surgical changes and devices: None. Lungs and pleura: Lungs are clear. No pleural effusions or pneumothorax. Mediastinum: Mediastinal contours appear normal. Heart size is normal. Bones and chest wall: No suspicious bony lesions. Overlying soft tissues appear unremarkable. IMPRESSION: No acute cardiopulmonary abnormality is seen. Dictated by: Suzette Dutton M.D. on 01/15/2025 at 22:39 Approved by: Suzette Dutton M.D. on 01/15/2025 at 22:40
--- NOTE | 2025-01-15 21:13 | EKG_ITS ---
[address] [address] Test Date: 2025-01-15 Pat Name: Reyna Jay Department: Room: Gender: Female Licensed Practical Nurse Clinic Nurse: [facility] : 1975 Requested By: Order Number: [id number] Reading MD: Ehsan Vergara Measurements Intervals [place] Rate: 55 P: 0 SC: 142 QRS: -4 QRSD: 94 T: 21 QT: 398 QTc: 380 Interpretive Statements Sinus bradycardia with marked sinus arrhythmia Electronically Signed On 01-17-2025 13:54:54 PDT by Ehsan Vergara
[2025-01-15] MEDS: ASPIRIN 81 MG CHEW TAB 324 MG PO (21:21)
[2025-01-15 21:29] LABS: INR 0.9 (0.9-1.3); Prothrombin Time 10.0 SECONDS (9.4-12.5)
--- NOTE | 2025-01-15 21:29 | ED.CHESTPAIN ---
HPI - Chest Pain General Chief Complaint: Chest Pain Stated Complaint: Rt leg pain, possible blood clot 3xdays Time Seen by Provider: 01/15/25 21:29 Mode of arrival: Ambulatory History of Present Illness HPI narrative: 49-year-old female with a past medical history DVTs not currently on Eliquis, hypertension, hyperlipidemia, diabetes comes into the ED from home for evaluation of pain to the right calf ongoing presents to past 3 days states it is worse whenever she bends the knee also complaining of chest pain has been ongoing intermittent for the past 24 hours as well. She denies any trauma or falls denies any other symptoms at this time. Related Data Home Medications ?Medication ?Instructions ?Recorded ?Confirmed acetaminophen 325 mg tablet 2 tab PO Q4HR PRN Pain, Mild ##0 10/02/12/27/18 apixaban 5 mg (74 tabs) tablets in 1 tab PO BID 12/27/18 12/27/18 a dose pack ferrous sulfate 325 mg (65 mg 1 tab PO DAILY 12/27/18 12/27/18 iron) tablet metformin 850 mg tablet 1 tab PO BID 12/27/18 12/27/18 Previous Rx's ?Medication ?Instructions ?Recorded medroxyprogesterone 10 mg tablet 20 mg (2 x 10 mg) PO DAILY #74 tabs 12/27/18 (Provera) ciprofloxacin HCl 500 mg tablet 500 mg PO BID #20 tabs 03/28/19 metronidazole 500 mg tablet 500 mg PO TID #30 tabs 03/28/19 (Flagyl) hydrocodone 5 mg-acetaminophen 325 1 tab PO Q6H PRN pain #10 tabs 09/26/24 mg tablet meloxicam 15 mg tablet 15 mg PO DAILY PRN pain #20 tabs 09/26/24 Allergies Allergy/AdvReac Type Severity Reaction Status Date / Time Fish Containing Products Allergy Mild Vomiting Verified 01/15/25 20:54 fish oil Allergy Mild Vomiting Verified 01/15/25 20:54 lisinopril AdvReac Nausea Verified 09/26/24 20:07 Review of Systems Review of Systems Narrative: General: Denies fever, chills, weight loss HEENT: Denies headache, eye drainage, eye irritation, head trauma, sore throat, voice change Cardiovascular: Positive chest pain, denies palpitations, tachycardia Respiratory: Denies any shortness of breath, cough, wheeze, stridor GI/: Denies any abdominal pain, nausea, vomiting, diarrhea, bright red blood per rectum, melanotic stools, urinary frequency, urinary retention, dysuria, hematuria MSK: Positive right leg/calf pain Skin: Denies any rashes, lesions, discoloration Neuro: Denies any headache, lightheadedness, dizziness, fainting, weakness Psych: Denies SI/HI Patient History Medical History Lesion of adrenal gland Left leg DVT Fibroid uterus Diabetes Surgical History (Updated 03/28/19 @ 00:30 by Cathleen Samuel DO) H/O: hysterectomy History of section, classical No pertinent past surgical history alcohol intake frequency: 0-2 drinks per day Exam Initial Vital Signs Initial Vital Signs: Vital Signs Temperature 97.4 F L 01/15/25 20:40 Pulse Rate 70 01/15/25 20:40 Respiratory Rate 16 01/15/25 20:40 Blood Pressure 124/77 01/15/25 20:40 Pulse Oximetry 100 01/15/25 20:40 Oxygen Delivery Method Room Air 01/15/25 20:40 Course Orders Ordered: ED Orders 01/15/25 21:05 Complete Blood Count AUTO DIFF Stat Comprehensive Metabolic Panel Stat Lipase Stat Magnesium Stat NT-proBNP (BNP-Adult 18+) Stat PTT Partial Thromboplastin [place] Stat Prothrombin Time INR Stat Troponin & CK Cardiac Panel Stat 01/15/25 21:13 XR chest 1V Stat EKG-12 Lead Stat 01/15/25 21:30 US periph venous low extrem rt Stat Discontinued Medications Aspirin (Aspirin 81 Mg Chew Tab) 324 mg PO NOW ONE Stop: 01/15/25 21:13 Last Admin: 01/15/25 21:21 Dose: 324 mg Documented By: C Vital Signs Vital signs: Vital Signs - 8 hr 01/15/25 20:40 Temperature 97.4 F L Pulse Rate 70 Respiratory Rate 16 Blood Pressure 124/77 Pulse Oximetry 100 Oxygen Delivery Method Room Air MDM - Chest Pain Lab Data 01/15/25 21:05 01/15/25 21:05 Labs: Lab Results 01/15/25 Range/Units 21:05 WBC 9.6 (4.5-11.0) X10^3/uL RBC 4.19 (4.0-5.2) X10^6/uL Hgb 12.9 (12.0-16.0) g/dL Hct 37.2 (36-46) % MCV 88.9 (80-100) fL MCH 30.8 (26-34) PG MCHC 34.6 (30-36) % RDW 13.3 (11.6-14.8) % Plt Count 287 (150-400) X10^3/uL Neut % (Auto) 47.5 L (50-75) % Lymph % (Auto) 40.1 H (25-40) % [place] % (Auto) 8.6 (3-14) % Eos % (Auto) 3.3 (2-4) % Baso % (Auto) 0.5 (0-2) % Neut # (Auto) 4500 (5002-9611) /uL Lymph # (Auto) 3800 (7709-3649) /uL [place] # (Auto) 800 (0-900) /uL Eos # (Auto) 300 (0-450) /uL Baso # (Auto) 0 (0-100) /uL PT 10.0 (9.4-12.5) SECONDS INR 0.9 (0.9-1.3) APTT 27 (25.1-36.5) SECONDS Sodium 137 (137-145) mmol/L Potassium 4.1 (3.4-5.1) mmol/L Chloride 104 (98-107) mmol/L Carbon Dioxide 25 (22-32) mmol/L BUN 12 (7-17) mg/dL Creatinine 0.77 (0.52-1.04) mg/dL Estimated GFR > 60 (>60) mL/min BUN/Creatinine Ratio 15.6 (6-22) Glucose 119 H (70-99) mg/dL Calcium 9.2 (8.4-10.2) mg/dL Magnesium 1.6 (1.6-2.3) mg/dL Total Bilirubin 0.4 (0.2-1.3) mg/dL AST 26 (14-36) IU/L ALT 21 (<35) IU/L Alkaline Phosphatase 46 (38-126) U/L Total Creatine Kinase 118 (30-135) U/L Troponin I < 0.012 (0.01-0.034) ng/mL NT-Pro-B Natriuret Pep < 20 (<125) pg/mL Total Protein 7.4 (6.3-8.2) g/dL Albumin 4.1 (3.5-5.0) g/dL Globulin 3.3 (1.7-4.1) g/dL Albumin/Globulin Ratio 1.2 (1.0-2.8) Lipase 308 H (23-300) U/L ECG Data Interpretation: EKG interpreted ED physician sinus bradycardia 55 beats per minute QTC 380, normal axis QRS FL interval within normal limits no STEMI MDM Narrative Medical decision making narrative: Patient is a 49 year old female with a history of diabetes hypertension hyperlipidemia DVTs not on Eliquis, comes into the ED from home for evaluation of chest pain and right leg/calf pain, ongoing persistent for the past 3 days. Nontraumatic, on exam she is neurovascularly intact no erythema no ecchymosis, patient states chest pain is a pressure intermittent for the past 24 hours not currently having any actual chest pain. EKG nonischemic in nature. Patient had lab work imaging ultrasound performed here in the emergency department. Patient without any cardiopulmonary abnormalities on chest x-ray, troponin negative, the remainder of her lab work was unremarkable. Patient with a heart score of 3. Ultrasound negative for acute DVT. Symptoms more likely secondary to musculoskeletal informed patient to use [id number] medication for symptom relief and instructed to follow up with primary care and Cardiology in outpatient setting she verbalized understanding of this and agrees to being discharged home with outpatient follow up Discharge Plan Departure Patient Disposition: Home Clinical Impression: Chest pain, Leg pain, right Instructions: DI for Chest Pain Activity Restrictions/Additional Instructions: Please follow up with primary care and Cardiology in outpatient setting Please read the discharge instructions sheet carefully and bring all papers to all doctor follow-up visits, as it may contain information that your doctor may want to see. Disease processes change and evolve, if your symptoms worsen or if you develop any new symptoms that are concerning to you please return for evaluation. Your evaluation today does not show any evidence of any life-threatening/serious illnesses requiring admission to the hospital or surgery. Please follow-up with your doctor for re-evaluation in approximately 1 day. Seek immediate medical attention for any worrisome symptoms. *If you do not have a primary care provider please contact the [facility] Resource line at [phone]. They will ask some questions about your medical history and help get you set up with a doctor in the community. Prescriptions: No Action acetaminophen 325 MG tablet 2 tab PO Q4HR PRN (Reason: Pain, Mild) Qty: 0 metformin 850 mg tablet 1 tab PO BID Patient Comments: TK 1 T PO BID ferrous sulfate 325 mg (65 mg iron) tablet 1 tab PO DAILY Patient Comments: TAKE 1 TABLET BY MOUTH 2 TIMES A DAY WITH BREAKFAST AND DINNER. Eliquis 5 mg (74 tabs) tablets,dose pack 1 tab PO BID Patient Comments: TAKE 2 TABLETS BY MOUTH 2 TIMES DAILY FOR 7 DAYS THEN TAKE 1 TABLET BYMOUTH TWICE DAILY UNTIL DIRECTED BY medroxyprogesterone [Provera] 10 mg tablet 20 mg PO DAILY Qty: 74 0RF Rx Instructions: Take 20 mg every 2 hours until bleeding stops. Then take 2 tablets every 4 hours for 48 hours. Then take 2 tablets every 6 hours for 48 hours. Then take 2 tablets every 8 hours for 48 hours. Then take 2 tablets every 12 hours for 48 hours. Then take 2 tablets every day for 7 days. metronidazole [Flagyl] 500 mg tablet 500 mg PO TID Qty: 30 0RF ciprofloxacin HCl 500 mg tablet 500 mg PO BID Qty: 20 0RF meloxicam 15 mg tablet 15 mg PO DAILY PRN (Reason: pain) Qty: 20 0RF hydrocodone-acetaminophen 5-325 mg tablet 1 tab PO Q6H PRN (Reason: pain) Qty: 10 0RF Referrals: Edd Gregg MD [Physician, Cardiology] Stand Alone Forms: Patient Portal/API
--- NOTE | 2025-01-15 21:30 | DI.US.S_ITS ---
PROCEDURE: US PERIPH VENOUS LOW EXTREM RT INDICATIONS: swelling pain, hx of DVT's TECHNIQUE: Real-time imaging, as well as color and pulse Doppler interrogation, were performed of the lower extremity deep veins from the inguinal ligament to the popliteal fossa, with documentation of the visualized calf veins. COMPARISON: None. FINDINGS: The common femoral, femoral, popliteal, and the visualized calf veins are normally compressible, and free of intraluminal thrombus. Color and pulse Doppler demonstrate normal phasic intraluminal flow. There is normal augmentation response to distal compression maneuver. IMPRESSION: 1. No DVT in the right lower extremity. 2. Preliminary report conveyed by the windows desktop support to the ordering provider. Dictated by: Suzette Dutton M.D. on 01/15/2025 at 23:12 Approved by: Suzette Dutton M.D. on 01/15/2025 at 23:13
[2025-01-15 21:31] LABS: PTT Partial Thromboplastin Tim 27 SECONDS (25.1-36.5)
[2025-01-15 21:33] LABS: Alanine Aminotransferase 21 IU/L (<35); Albumin 4.1 g/dL (3.5-5.0); Albumin Globulin Ratio 1.2 (1.0-2.8); Alkaline Phosphatase 46 U/L (38-126); Blood Urea Nitrogen 12 mg/dL (7-17); Calcium 9.2 mg/dL (8.4-10.2); Carbon Dioxide 25 mmol/L (22-32); Chloride 104 mmol/L (98-107); Creatine Kinase 118 U/L (30-135); Estimated Glomerular Filt Rate > 60 mL/min (>60); Globulin 3.3 g/dL (1.7-4.1); Glucose 119 mg/dL (70-99); HEMOLYSIS < 15 (0-50); Lipase 308 U/L (23-300); Magnesium 1.6 mg/dL (1.6-2.3); Potassium 4.1 mmol/L (3.4-5.1); Sodium 137 mmol/L (137-145); Total Protein 7.4 g/dL (6.3-8.2)
[2025-01-15 21:44] LABS: NT-proBNP (BNP-Adult 18+) < 20 pg/mL (<125); Troponin I < 0.012 ng/mL (0.01-0.034)
[2025-01-15 21:52] LABS: Add Manual Diff / Slide Review NO; Hematocrit 37.2 % (36-46); Hemoglobin 12.9 g/dL (12.0-16.0); Lymphocytes Absolute Auto 3800 /uL (1100-4500); Mean Corpuscular HGB Conc 34.6 % (30-36); Mean Corpuscular Hemoglobin 30.8 PG (26-34); Mean Corpuscular Volume 88.9 fL (80-100); Platelet Count 287 X10^3/uL (150-400)
== END 2025-01-15 23:51 | disposition home or self-care (01) ==
PROVIDERS: Emergency Provider Student in an Organized Health Care Education/Training Program
DX: R07.9 Chest pain, unspecified (principal); M79.604 Pain in right leg
CPT/HCPCS: 36415; 71045; 80053; 82550; 83690; 83735; 83880; 84484; 85025; 85610; 85730; 93005; 93971; 99284

== ENCOUNTER 2025-01-20 10:27 | Emergency (ER) | payer OTHER, SELFPAY ==
[2025-01-20 10:28] VITALS: BP 130/76; PULSE 68; RESP 15; TEMP 36.7; O2SAT 99; BMI 31.8
--- NOTE | 2025-01-20 11:17 | ED.BACK ---
HPI - Back Pain/Injury <Edwin Blum PA-C - Last Filed: 01/20/25 12:29> General Chief Complaint: Back Pain/Injury Stated Complaint: Right knee pain, getting worse Time Seen by Provider: 01/20/25 11:11 Source: patient History of Present Illness HPI Narrative: This is a 49-year-old female presents emergency department due to right lower extremity pain. States that she feels the pain behind the right knee with radiation down her right leg as well as up to her thigh. States that it is sharp pain. Onset roughly 7 days ago without any acute injuries recalled. Denies any numbness. States that it feels very similar to a DVT she was having in the past. She was on blood thinners. Denies any fevers, nausea, vomiting, or any other concerning signs or symptoms. Related Data Home Medications ?Medication ?Instructions ?Recorded ?Confirmed acetaminophen 325 mg tablet 2 tab PO Q4HR PRN Pain, Mild ##0 10/02/12/27/18 apixaban 5 mg (74 tabs) tablets in 1 tab PO BID 12/27/18 12/27/18 a dose pack ferrous sulfate 325 mg (65 mg 1 tab PO DAILY 12/27/18 12/27/18 iron) tablet metformin 850 mg tablet 1 tab PO BID 12/27/18 12/27/18 Previous Rx's ?Medication ?Instructions ?Recorded medroxyprogesterone 10 mg tablet 20 mg (2 x 10 mg) PO DAILY #74 tabs 12/27/18 (Provera) ciprofloxacin HCl 500 mg tablet 500 mg PO BID #20 tabs 03/28/19 metronidazole 500 mg tablet 500 mg PO TID #30 tabs 03/28/19 (Flagyl) hydrocodone 5 mg-acetaminophen 325 1 tab PO Q6H PRN pain #10 tabs 09/26/24 mg tablet meloxicam 15 mg tablet 15 mg PO DAILY PRN pain #20 tabs 09/26/24 meloxicam 15 mg tablet 15 mg PO DAILY PRN pain (scale 01/15/25 score 1-3) 2 weeks #14 tabs Allergies Allergy/AdvReac Type Severity Reaction Status Date / Time Fish Containing Products Allergy Mild Vomiting Verified 01/20/25 10:37 fish oil Allergy Mild Vomiting Verified 01/20/25 10:37 lisinopril AdvReac Nausea Verified 01/20/25 10:37 Review of Systems <Edwin Blum PA-C - Last Filed: 01/20/25 12:29> Review of Systems Narrative: GENERAL: Denies chills, fatigue, malaise, fever, sweats. HEENT: Denies sinus pain, ear pain, sore throat, difficulty swallowing, dizziness. RESPIRATORY: Denies dyspnea, cough, wheezing, hemoptysis, sputum. CARDIOVASCULAR: Denies chest pain, palpitations, orthopnea, edema, GASTROINTESTINAL: Denies nausea, vomiting, abdominal pain, diarrhea, constipation, melena. : Denies dysuria, frequency, incontinence, hematuria, urinary retention. MUSCULOSKELETAL: Reports right lower extremity pain SKIN: Denies rash, skin lesions, or other NEUROLOGIC: Denies weakness, headache, numbness, change in speech, confusion, seizures, incoordination. PSYCHIATRIC: No concerning psychosocial issues. 12 point review of systems is negative except for those stated above Patient History <Edwin Blum PA-C - Last Filed: 01/20/25 12:29> Medical History Lesion of adrenal gland Left leg DVT Fibroid uterus Diabetes Surgical History (Updated 03/28/19 @ 00:30 by Cathleen Samuel DO) H/O: hysterectomy History of section, classical No pertinent past surgical history Social History Smoking Status: Unknown if ever smoked Smoking Status: Unknown if ever smoked alcohol intake frequency: 0-2 drinks per day Exam <Edwin Blum PA-C - Last Filed: 01/20/25 12:29> Narrative Exam Narrative: GENERAL: Well-developed patient, in mild distress. HEAD: Atraumatic. Normocephalic. EYES: Pupils equal round and reactive. Extraocular motions intact. No scleral icterus. No injection or drainage. ENT: Nose without bleeding, purulent drainage. Throat without erythema, tonsillar hypertrophy or exudate. Airway patent. NECK: Trachea midline. Non tender EXTREMITIES: Tenderness to palpation to the bony areas of the lateral and medial knee as well as the right calf. No significant swelling noted. Also has some tenderness to palpation to the right tibia proximally. No significant joint stiffness or erythema. No breaks in the skin. Neurovascularly intact throughout. NEURO: AOx3. SKIN: No rash or erythema of visible areas Initial Vital Signs Initial Vital Signs: Vital Signs Temperature 98.1 F 01/20/25 10:28 Pulse Rate 68 01/20/25 10:28 Respiratory Rate 15 01/20/25 10:28 Blood Pressure 130/76 01/20/25 10:28 Pulse Oximetry 99 01/20/25 10:28 Oxygen Delivery Method Room Air 01/20/25 10:28 <Cathleen Samuel DO - Last Filed: 01/20/25 18:25> Initial Vital Signs Initial Vital Signs: Vital Signs Temperature 98.1 F 01/20/25 10:28 Pulse Rate 68 01/20/25 10:28 Respiratory Rate 15 01/20/25 10:28 Blood Pressure 130/76 01/20/25 10:28 Pulse Oximetry 99 01/20/25 10:28 Oxygen Delivery Method Room Air 01/20/25 10:28 Course <Edwin Blum PA-C - Last Filed: 01/20/25 12:29> Orders Ordered: ED Orders 01/20/25 11:22 US periph venous low extrem rt Stat XR knee RT 3V Stat XR tibia fibula RT 2V Stat Vital Signs Vital signs: Vital Signs - 8 hr 01/20/25 10:28 01/20/25 12:35 Temperature 98.1 F 98.9 F Pulse Rate 68 74 Respiratory Rate 15 18 Blood Pressure 130/76 126/79 Pulse Oximetry 99 99 Oxygen Delivery Method Room Air Room Air <Cathleen Samuel DO - Last Filed: 01/20/25 18:25> Orders Ordered: ED Orders 01/20/25 11:22 US periph venous low extrem rt Stat XR knee RT 3V Stat XR tibia fibula RT 2V Stat Vital Signs Vital signs: Vital Signs - 8 hr 01/20/25 10:28 01/20/25 12:35 Temperature 98.1 F 98.9 F Pulse Rate 68 74 Respiratory Rate 15 18 Blood Pressure 130/76 126/79 Pulse Oximetry 99 99 Oxygen Delivery Method Room Air Room Air MDM - Back Pain/Injury <MELIDA Joiner Last Filed: 01/20/25 12:29> Imaging Data US - DVT: Radiologist's Impression: [address] [address] Ultrasound Report Signed Patient: Reyna Alanis MR#: [id number] : 1975 Acct:[id number] Age/Sex: 49 / F Date of Service: 01/20/25 Loc: ED Accession Number: [id number] Procedure: US periph venous low extrem rt Ordering Provider: Edwin Blum PA-C PROCEDURE: US PERIPH VENOUS LOW EXTREM RT INDICATIONS: RLE pain hx of DVT TECHNIQUE: Real-time imaging, as well as color and pulse Doppler interrogation, were performed of the lower extremity deep veins from the inguinal ligament to the popliteal fossa, with documentation of the visualized calf veins. COMPARISON: [facility], US PERIPH VENOUS LOW EXTREM RT, 01/15/2025, 22:05. FINDINGS: The common femoral, femoral, popliteal, and the visualized calf veins are normally compressible, and free of intraluminal thrombus. Color and pulse Doppler demonstrate normal phasic intraluminal flow. There is normal augmentation response to distal compression maneuver. IMPRESSION: Negative right lower extremity duplex venous ultrasound for DVT. Dictated by: Balwinder Orosco M.D. on 01/20/2025 at 12:01 Approved by: Balwinder Orosco M.D. on 01/20/2025 at 12:05 Extremity x-ray #1: Radiologist's Impression: [place] [address] XRay Report Signed Patient: Reyna Alanis MR#: [id number] : 1975 Acct:[id number] Age/Sex: 49 / F Date of Service: 01/20/25 Loc: ED Accession Number: [id number] Procedure: XR knee RT 3V Ordering Provider: Edwin Blum PA-C PROCEDURE: XR KNEE RT 3V INDICATIONS: R knee pain TECHNIQUE: 3 views of the knee were acquired. COMPARISON: [facility], CR, XR KNEE LT 3V, 09/26/2024, 20:09. [facility], CR, XR TIBIA FIBULA RT 2V, 01/20/2025, 11:47. FINDINGS: Bones: No fractures or dislocations. No suspicious bony lesions. Soft tissues: There is a small right knee joint effusion. No suspicious soft tissue calcifications. IMPRESSION: Small right knee joint effusion. No acute bony abnormality is seen. If it would be helpful for clinical management decision making, please consider a dedicated, scheduled knee MRI for further evaluation (assuming that there is no contraindication). Dictated by: Elliot Espinoza M.D. on 01/20/2025 at 11:14 Approved by: Elliot Espinoza M.D. on 01/20/2025 at 11:15 Extremity x-ray #2: Radiologist's Impression: [address] [address] XRay Report Signed Patient: Reyna Alanis MR#: [id number] : 1975 Acct:[id number] Age/Sex: 49 / F Date of Service: 01/20/25 Loc: ED Accession Number: [id number] Procedure: XR tibia fibula RT 2V Ordering Provider: Edwin Blum PA-C PROCEDURE: XR TIBIA FUBULA RT 2V INDICATIONS: Tibia TTP TECHNIQUE: 2 views of the tibia and fibula were acquired. COMPARISON: [facility], , XR KNEE RT 3V, 01/20/2025, 11:47. FINDINGS: Bones: No fractures or dislocations. No suspicious bony lesions. Mild degenerative changes are seen. Soft tissues: No suspicious soft tissue calcifications or masses. IMPRESSION: No acute plain film abnormality is seen. Dictated by: Elliot Espinoza M.D. on 01/20/2025 at 11:15 Approved by: Elliot Espinoza M.D. on 01/20/2025 at 11:15 MDM Narrative Medical decision making narrative: ED course: This is a 49-year-old female presenting to the emergency department due to her continued right lower extremity pain. Repeat ultrasound ordered due to patient was history of DVT but negative. X-ray of the knee and tibia ordered as well which were negative for any fractures. Did show small amount of effusion. Patient may have ligamentous damage although no abnormalities fell on exam. Recommended she follow up with primary for possible MRI. May also be muscular not ensure and we will trial muscle relaxants. Patient was declined knee immobilizer crutches. CC: Right lower extremity pain Complicating co-morbidities: History of DVTs Data collected from: Previous notes Medical records reviewed: Patient was seen here 5 days ago due to right leg pain. Past medical history of DVTs not currently on Eliquis. Hypertension. Hyperlipidemia, diabetes. Patient was reporting 3 days of right calf pain as well as chest pain for the 24 hours. Ultrasound was negative for acute DVT. Cardiac workup unremarkable. Differential considered, but not limited to: Muscular strain, meniscal injury, ligament injury Exam documented above, pertinent findings include: No joint laxity felt on exam Lab Test results independently reviewed as above. Pertinent findings: No obtained Imaging studies independently reviewed: Ultrasound negative for DVT, x-rays negative fractures Scores Used: None MIPS Elements: None Consultations: None Treatments: None Re-evaluations: None Discussion: Discussed plan with the patient was comfortable with the plan Diagnosis: Knee sprain Disposition: see below, along with detailed discharge instructions that have been reviewed with patient as well as indications for ED re-evaluation and additional outpatient follow up Discharge Plan Departure Patient Disposition: Home Clinical Impression: Knee sprain Qualifiers: Encounter type: initial encounter Involved ligament of knee: unspecified ligament Laterality: right Qualified Code(s): S83.91XA - Sprain of unspecified site of right knee, initial encounter Activity Restrictions/Additional Instructions: Thank you for coming to the [facility] Emergency Department today. As we discussed you may use ibuprofen and Tylenol for pain and comfort. You may also use the muscle relaxants as he has been held. I do recommend he follow up with your primary care provider for possible advanced imaging if the pain continues. Please return to the emergency department if you develop any numbness, significant new or worsening pain, or any other concerning signs or symptoms. I hope you feel better soon. Please follow up with your primary care provider within a week if your symptoms continue. If you do not have a primary care provider please contact the [facility] Resource line at [phone]. They will ask some questions about your medical history and help you get set up with a provider in the community. Prescriptions: No Action acetaminophen 325 MG tablet 2 tab PO Q4HR PRN (Reason: Pain, Mild) Qty: 0 metformin 850 mg tablet 1 tab PO BID Patient Comments: TK 1 T PO BID ferrous sulfate 325 mg (65 mg iron) tablet 1 tab PO DAILY Patient Comments: TAKE 1 TABLET BY MOUTH 2 TIMES A DAY WITH BREAKFAST AND DINNER. Eliquis 5 mg (74 tabs) tablets,dose pack 1 tab PO BID Patient Comments: TAKE 2 TABLETS BY MOUTH 2 TIMES DAILY FOR 7 DAYS THEN TAKE 1 TABLET BYMOUTH TWICE DAILY UNTIL DIRECTED BY medroxyprogesterone [Provera] 10 mg tablet 20 mg PO DAILY Qty: 74 0RF Rx Instructions: Take 20 mg every 2 hours until bleeding stops. Then take 2 tablets every 4 hours for 48 hours. Then take 2 tablets every 6 hours for 48 hours. Then take 2 tablets every 8 hours for 48 hours. Then take 2 tablets every 12 hours for 48 hours. Then take 2 tablets every day for 7 days. metronidazole [Flagyl] 500 mg tablet 500 mg PO TID Qty: 30 0RF ciprofloxacin HCl 500 mg tablet 500 mg PO BID Qty: 20 0RF meloxicam 15 mg tablet 15 mg PO DAILY PRN (Reason: pain) Qty: 20 0RF hydrocodone-acetaminophen 5-325 mg tablet 1 tab PO Q6H PRN (Reason: pain) Qty: 10 0RF meloxicam 15 mg tablet 15 mg PO DAILY PRN (Reason: pain (scale score 1-3)) 14 Days Qty: 14 0RF Stand Alone Forms: Patient Portal/API ED Sign-out <Cathleen Samuel DO - Last Filed: 01/20/25 18:25> Cosign ED Attending Cosignature Attestation: I was immediately available in the department for consultation.
--- NOTE | 2025-01-20 11:22 | DI.RAD.S_ITS ---
PROCEDURE: XR KNEE RT 3V INDICATIONS: R knee pain TECHNIQUE: 3 views of the knee were acquired. COMPARISON: [facility], CR, XR KNEE LT 3V, 09/26/2024, 20:09. [facility], CR, XR TIBIA FIBULA RT 2V, 01/20/2025, 11:47. FINDINGS: Bones: No fractures or dislocations. No suspicious bony lesions. Soft tissues: There is a small right knee joint effusion. No suspicious soft tissue calcifications. IMPRESSION: Small right knee joint effusion. No acute bony abnormality is seen. If it would be helpful for clinical management decision making, please consider a dedicated, scheduled knee MRI for further evaluation (assuming that there is no contraindication). Dictated by: Elliot Espinoza M.D. on 01/20/2025 at 11:14 Approved by: Elliot Espinoza M.D. on 01/20/2025 at 11:15
--- NOTE | 2025-01-20 11:22 | DI.US.S_ITS ---
PROCEDURE: US PERIPH VENOUS LOW EXTREM RT INDICATIONS: RLE pain hx of DVT TECHNIQUE: Real-time imaging, as well as color and pulse Doppler interrogation, were performed of the lower extremity deep veins from the inguinal ligament to the popliteal fossa, with documentation of the visualized calf veins. COMPARISON: [facility], , US PERIP VENOUS LOW EXTREM RT, 01/15/2025, 22:05. FINDINGS: The common femoral, femoral, popliteal, and the visualized calf veins are normally compressible, and free of intraluminal thrombus. Color and pulse Doppler demonstrate normal phasic intraluminal flow. There is normal augmentation response to distal compression maneuver. IMPRESSION: Negative right lower extremity duplex venous ultrasound for DVT. Dictated by: Balwinder Orosco M.D. on 01/20/2025 at 12:01 Approved by: Balwinder Orosco M.D. on 01/20/2025 at 12:05
--- NOTE | 2025-01-20 11:22 | DI.RAD.S_ITS ---
PROCEDURE: XR TIBIA FUBULA RT 2V INDICATIONS: Tibia TTP TECHNIQUE: 2 views of the tibia and fibula were acquired. COMPARISON: [facility], CR, XR KNEE RT 3V, 01/20/2025, 11:47. FINDINGS: Bones: No fractures or dislocations. No suspicious bony lesions. Mild degenerative changes are seen. Soft tissues: No suspicious soft tissue calcifications or masses. IMPRESSION: No acute plain film abnormality is seen. Dictated by: Elliot Espinoza M.D. on 01/20/2025 at 11:15 Approved by: Elliot Espinoza M.D. on 01/20/2025 at 11:15
[2025-01-20 12:35] VITALS: BP 126/79; PULSE 74; RESP 18; TEMP 37.2; O2SAT 99
== END 2025-01-20 12:37 | disposition home or self-care (01) ==
PROVIDERS: Emergency Provider Physician Assistant Medical
DX: S83.91XA Sprain of unspecified site of right knee, initial encounter (principal)
CPT/HCPCS: 73562; 73590; 93971; 99282; 99283